=== PATIENT | female | born 2000 | race Caucasian/White ===

== ENCOUNTER → 2019-07-31 17:29 | Outpatient (BNVA) | payer MEDICAID, SELFPAY | PROVIDERS: Family Provider Pediatrics Adolescent Medicine; Visit Provider Nurse Practitioner Family | DX: N39.0 Urinary tract infection, site not specified (principal) | CPT/HCPCS: 81003; 81025; 87086; 87491; 87591; 87661 ==

== ENCOUNTER 2020-07-11 09:49 | Outpatient (CLI) | payer MEDICAID, SELFPAY ==
--- NOTE | 2020-07-11 09:59 | FL_ITS ---
WS: [id number] UPPER GI TECHNICAL: Double contrast upper GI FLUOROSCOPY TIME: 4.2 minutes CLINICAL INFORMATION: DIFFICULTY SWALLOWING, FIBROMYALGIA COMPARISON: None. FINDINGS: Swallowing: Normal. Esophagus: Moderate esophageal dysmotility with delayed emptying. Prominent reflux into the mid and u pper esophagus in the upright and supine imaging no significant hiatal hernia. Gastroesophageal reflux: Present Stomach: Diffuse thickening of the gastric rugae consistent with gastritis. Duodenum: Normal. Other findings: None. OK/OK upper GI series [id number] IMPRESSION: 1. Moderate esophageal dysmotility with delayed emptying. Prominent reflux int o the mid and upper esophagus on the upright and supine imaging. 2. Diffuse thickening of the gastric rugae likely due to gastritis. 3. Normal duodenal bulb. 4. No significant hiatal hernia.
== END 2020-07-11 09:50 | disposition home or self-care (01) ==
LOC: RADWPI 09:54
PROVIDERS: PCP Nurse Practitioner Family; Visit Provider Nurse Practitioner Family
DX: M79.7 Fibromyalgia (principal); R13.10 Dysphagia, unspecified
CPT/HCPCS: 74240

== ENCOUNTER 2020-07-17 07:22 | Emergency (ER) | payer MEDICAID, SELFPAY ==
[2020-07-17 07:29] VITALS: BP 109/78; PULSE 90; RESP 16; TEMP 36.7; O2SAT 99; BMI 21.2
--- NOTE | 2020-07-17 07:36 | W.ED.PREGNAN ---
HPI - General: Chief complaint: Vaginal Bleeding Stated complaint: , vaginal bleeding Time Seen by Provider: 07/17/20 07:29 History of Present Illness: HPI Narrative: 19 yo female complains of vaginal bleeding. Pt states she is (this being her first . Leading started on light yesterday and increased today. States it seems like normal cycle. She states her last menstrual period that was normal was June 25. This would put her at 3 weeks and 1 day. Patient states her positive test came after 3 home tests. She denies any cramping or abdominal pain no pelvic pain no dysuria urgency or frequency. MD Complaint: vaginal bleeding Onset (ago): hour(s) Pain Consistency: intermittent Severity: mild Date of Last Menstrual Period: 06/25/20 Number of Weeks : 3 weeks 1 day Associated symptoms: Deny abdominal pain, dyspareunia, dysuria, headache(s), malaise, nausea, rash, seizures, short of breath, syncope, vaginal bleeding, vaginal discharge, visual changes, vomiting or weakness Review of Systems Const: Denies: malaise ENMT: Denies: throat pain, ear or mastoid pain, nasal discharge or nasal congestion Card: Denies: syncope Resp: Denies: dyspnea, productive cough or non-productive cough GI: Denies: abdominal pain, nausea or vomiting : Denies: vaginal discharge or dyspareunia Skin/Breast: Denies: rash or pruritus Neuro: Denies: headache(s) [facility] ED PFSH: Social History (Updated 07/31/19 @ 17:29 by Jenny Mederos LPN) Smoking and tobacco status: current some day smoker Alcohol intake: current Female Reproductive History: Date of last menstrual period: 06/25/20 Physical Exam Const: COMMON NORMALS: no acute distress GENERAL APPEARANCE: cooperative and comfortable ORIENTATION/CONSCIOUSNESS: Yes awake, Yes oriented to person, Yes oriented to place and Yes oriented to time HENMT: COMMON NORMALS: normocephalic, atraumatic and hearing grossly normal bilaterally HEAD & SCALP: normocephalic and atraumatic Neck/C-Spine: COMMON NORMALS: no JVD Resp: COMMON NORMALS: normal respiratory effort, No retractions, No use of accessory muscles and clear to auscultation bilaterally AUSCULTATION: clear to auscultation bilaterally Cardio: COMMON NORMALS: no JVD, regular rate, regular rhythm and No murmurs present (Cardio) RATE: regular rate RHYTHM: regular rhythm GI: COMMON NORMALS: Soft to palpation and No hepatosplenomegaly present AUSCULTATION: Yes normoactive bowel sounds PALPATION: Yes Soft to palpation, No Tenderness to palpation present (GI), No Guarding due to palpation present (GI) and Yes No hepatosplenomegaly present : SPECULUM EXAM - VAGINA: No vaginal bleeding OB/EXTERNAL & SPECULUM: No vaginal bleeding Extremity: COMMON NORMALS: normal to inspection, capillary refill normal, no clubbing, cyanosis or edema, no calf tenderness and no pedal edema Neuro: SENSORIUM/ORIENTATION: Yes oriented to person, Yes oriented to place and Yes oriented to time Skin: COMMON NORMALS: no rashes or lesions noted GENERAL SKIN EXAM: no rashes or lesions noted Procedures Perimortem Number of Weeks : 3 weeks 1 day Course Vital Signs: Vital signs: Vital Signs Temperature 98.1 F 07/17/20 07:29 Pulse Rate 87 07/17/20 09:34 Respiratory Rate 16 07/17/20 07:29 Blood Pressure 121/84 07/17/20 09:34 Pulse Oximetry 100 07/17/20 09:34 MDM - OB/Uterine Contractions MDM Narrative: Medical decision making narrative: Ultrasound confirms intrauterine at approximately 7 weeks. No evidence of active bleeding no evidence of subchorionic hemorrhage although somewhat limited due to bowel gas. Patient declined transvaginal ultrasound. We will go ahead and discharge her home started on vitamins follow-up with her OB she is tends to establish with Dr. Glass return if has problems Lab Data: Labs: Lab Results 07/17/20 07/17/20 07/17/20 Range/Units 07:54 07:54 07:54 WBC 5.6 (4.5-13.0) 10^3/ uL RBC 5.24 (4.1-5.3) 10^6/u L Hgb 15.0 (11.5-15.3) g/dL Hct 44.1 (37.0-47.0) % MCV 84.2 (81-99) fL MCH 28.6 (28.0-34.0) pg MCHC 34.0 (30.0-36.0) g/dL RDW 11.7 L (12.1-15.1) % Plt Count 174 (130-400) 10^3/c mm MPV 11.3 H (7.4-10.4) fL Neut % (Auto) 61.4 % Lymph % (Auto) 25.4 % [place]le[place] % (Auto) 10.1 % Eos % (Auto) 2.2 % Baso % (Auto) 0.5 % Neut # (Auto) 3.42 (1.8-8.0) 10^3/u L Lymph # (Auto) 1.4 L (1.5-6.5) 10^3/u L [place] # (Auto) 0.6 (0.2-0.9) 10^3/u L Eos # (Auto) 0.1 (0.0-0.8) 10^3/u L Baso # (Auto) 0.0 (0.0-0.1) 10^3/u L Nucleated RBC % (a uto) 0 % Nucleated RBCs # 0.0 /100WBC Sodium 135 L (136-145) mmol/L Potassium 4.1 (3.5-5.1) mmol/L Chloride 102 (98-107) mmol/L Carbon Dioxide 25 (22-29) mmol/L Anion Gap 12.1 (5-19) BUN 8 (6-20) mg/dL Creatinine 0.6 (0.5-0.9) mg/dL GFR Calculation 127.5 (90-130) mL/min Glucose 89 (65-115) mg/dL Calculated Osmolal ity 278 L (285-295) mOsm/k g Calcium 9.2 (8.5-10.5) mg/dL Total Bilirubin 0.6 (0.15-1.2) mg/dL AST 9 (0-32) U/L ALT 8 (0-33) U/L Alkaline Phosphata se 70 (35-105) IU/L Total Protein 6.9 (6.6-8.7) g/dL Albumin 4.3 (3.5-5.2) g/dL Globulin 2.6 (1.3-4.6) g/dL Ser , [place] [address]33.00 mIU/mL Urine Color (Yellow) Urine Appearance (CLEAR) Urine pH (5-7) Ur Specific Gravit y (1.005-1.030) Urine Protein (Negative) Urine Glucose (UA) (Normal) Urine Ketones (Negative) Urine Blood (Negative) Urine Nitrate (Negative) Urine Bilirubin (Negative) Urine Urobilinogen (Negative) mg/dL Ur Leukocyte Maira ase (Negative) Urine RBC (0-2) /hpf Urine WBC (0-5) /hpf Ur Squamous Epith Cells (0-5) /hpf Amorphous Sediment Urine Bacteria (NONE) /hpf Urine Mucus /hpf Rho(D) Type Positive 07/17/20 Range/Units 07:58 WBC (4.5-13.0) 10^3/ uL RBC (4.1-5.3) 10^6/u L Hgb (11.5-15.3) g/dL Hct (37.0-47.0) % MCV (81-99) fL MCH (28.0-34.0) pg MCHC (30.0-36.0) g/dL RDW (12.1-15.1) % Plt Count (130-400) 10^3/c mm MPV (7.4-10.4) fL Neut % (Auto) % Lymph % (Auto) % [place] % (Auto) % Eos % (Auto) % Baso % (Auto) % Neut # (Auto) (1.8-8.0) 10^3/u L Lymph # (Auto) (1.5-6.5) 10^3/u L [place] # (Auto) (0.2-0.9) 10^3/u L Eos # (Auto) (0.0-0.8) 10^3/u L Baso # (Auto) (0.0-0.1) 10^3/u L Nucleated RBC % (a uto) % Nucleated RBCs # /100WBC Sodium (136-145) mmol/L Potassium (3.5-5.1) mmol/L Chloride (98-107) mmol/L Carbon Dioxide (22-29) mmol/L Anion Gap (5-19) BUN (6-20) mg/dL Creatinine (0.5-0.9) mg/dL GFR Calculation (90-130) mL/min Glucose (65-115) mg/dL Calculated Osmolal ity (285-295) mOsm/k g Calcium (8.5-10.5) mg/dL Total Bilirubin (0.15-1.2) mg/dL AST (0-32) U/L ALT (0-33) U/L Alkaline Phosphata se (35-105) IU/L Total Protein (6.6-8.7) g/dL Albumin (3.5-5.2) g/dL Globulin (1.3-4.6) g/dL Ser , Eileen i-Qnt mIU/mL Urine Color Yellow (Yellow) Urine Appearance Sl hazy (CLEAR) Urine pH 5 (5-7) Ur Specific Gravit y 1.025 (1.005-1.030) Urine Protein Neg (Negative) Urine Glucose (UA) Norm (Normal) Urine Ketones 1+ H (Negative) Urine Blood 3+ H (Negative) Urine Nitrate Negative (Negative) Urine Bilirubin 1+ H (Negative) Urine Urobilinogen 1 H (Negative) mg/dL Ur Leukocyte Maira ase Negative (Negative) Urine RBC 25-40 H (0-2) /hpf Urine WBC None (0-5) /hpf Ur Squamous Epith Cells 5-10 H (0-5) /hpf Amorphous Sediment Not Reportable Urine Bacteria 1+ H (NONE) /hpf Urine Mucus 1+ /hpf Rho(D) Type Discharge Plan Discharge Patient Disposition: Home Clinical Impression: First trimester bleeding Condition: Stable Prescriptions: New Vitamin 27 mg iron- 800 mcg tablet 1 tab PO DAILY Qty: 90 RF: 0 Discharge Orders: Discharge ED (Routine); Ordered 07/17/20 Ordered By: Derrick Henriquez Referrals: Analia Stark FNP [Primary Care Provider] - Discharge Diet: Usual diet Discharge Activity: Increase activity as tolerated Coding Level of Care Code ED General Ledger Accountant for Chg Fwd Exam Comprehensive
[2020-07-17 08:03] LABS: Basophils % 0.5 %; Eosinophils # 0.1 10^3/uL (0.0-0.8); Eosinophils % 2.2 %; Hematocrit 44.1 % (37.0-47.0); Lymphocytes # 1.4 10^3/uL (1.5-6.5); Lymphocytes % 25.4 %; Mean Corpuscular Hemoglobin 28.6 pg (28.0-34.0); Mean Corpuscular Volume 84.2 fL (81-99); Mean Platelet Volume 11.3 fL (7.4-10.4); Monocytes # 0.6 10^3/uL (0.2-0.9); Monocytes % 10.1 %; Neutrophils # 3.42 10^3/uL (1.8-8.0); Neutrophils % 61.4 %; Nucleated Red Blood Cells % 0 %; Platelet Count 174 10^3/cmm (130-400); Red Blood Count 5.24 10^6/uL (4.1-5.3); Red Cell Distribution Width 11.7 % (12.1-15.1); White Blood Count 5.6 10^3/uL (4.5-13.0)
[2020-07-17 08:37] LABS: Specific Gravity, Urine 1.025 (1.005-1.030); Urine Appearance SL Hazy (CLEAR); Urine Color Yellow (Yellow); pH Urine 5 (5-7)
[2020-07-17 08:38] LABS: Alanine Aminotransferase 8 U/L (0-33); Albumin Level 4.3 g/dL (3.5-5.2); Alkaline Phosphatase 70 IU/L (35-105); Anion Gap 12.1 (5-19); Aspartate Amino Transferase 9 U/L (0-32); Blood Urea Nitrogen 8 mg/dL (6-20); Calcium 9.2 mg/dL (8.5-10.5); Carbon Dioxide 25 mmol/L (22-29); Chloride 102 mmol/L (98-107); Creatinine Clr Calc Pharmacy 150.5001; Globulin 2.6 g/dL (1.3-4.6); Glomerular Filtration Rate 127.5 mL/min (90-130); Glucose 89 mg/dL (65-115); Osmolality Calculated 278 mOsm/kg (285-295); Potassium 4.1 mmol/L (3.5-5.1); Sodium 135 mmol/L (136-145); Total Bilirubin 0.6 mg/dL (0.15-1.2); Total Protein 6.9 g/dL (6.6-8.7)
[2020-07-17 08:38] LABS: Add Urine Culture? Yes; Add Urine Microscopic? YES; Bacteria Urine 1+ /hpf; Bilirubin Urine 1+ (Negative); Blood Urine 3+ (Negative); Glucose Urine UA Norm (Normal); Ketones Urine 1+ (Negative); Leukocyte Esterase Urine Negative (Negative); Mucus Urine 1+ /hpf; Nitrate Urine Negative (Negative); Protein Urine Neg (Negative); RBC Urine 25-40 /hpf (0-2); Urobilinogen Urine 1 mg/dL (Negative)
--- NOTE | 2020-07-17 09:14 | US_ITS ---
WS: [id number] ULTRASOUND EARLY TECHNIQUE: Transabdominal sonography of the pelvis was performed. CLINICAL INFORMATION: confirm intruterine preg LMP: 06/25/2020 Beta hCG: Unknown. COMPARISON: None. FINDINGS: Technically difficult examination due to bowel gas. UTERUS AND GESTATIONAL SAC Intrauterine gestations: Cervix measures 3.1 cm Estimated gestational age: 6w2d Yolk sac: 0.2 cm. [place] rump length (CRL): 0.5 cm. heart motion: 118 BPM. Subchorionic hemorrhage: None. OVARIES Right ovary: Normal. Left ovary: Difficult to visualize FREE FLUID None. US/US OB limited [id number] IMPRESSION: Technically difficult examination due to bowel gas. 1. Single live intrauterine . 2. Estimated gestational age; 6w2d. Estimated delivery March 10, 2021 3. Normal right ovary. 4. Left ovary not visualized. 5. No free fluid in the cul-de-sac.
[2020-07-17 09:34] VITALS: BP 121/84; PULSE 87; O2SAT 100
--- NOTE | 2020-07-17 09:37 | PC.NURSE ---
portable ultrasound at bedside
[2020-07-17 11:00] VITALS: BP 116/69; PULSE 80; O2SAT 100
== END 2020-07-17 11:09 | disposition home or self-care (01) ==
PROVIDERS: Emergency Provider Family Medicine; PCP Nurse Practitioner Family
DX: O20.9 Hemorrhage in early pregnancy, unspecified (principal); F17.200 Nicotine dependence, unspecified, uncomplicated
CPT/HCPCS: 12345; 36415; 76815; 80053; 81001; 84702; 85025; 87086; 99281; 99283

== ENCOUNTER 2020-10-24 14:45 | Outpatient (CLI) | payer MEDICAID, SELFPAY ==
--- NOTE | 2020-10-24 14:48 | US_ITS ---
WS: [id number] ULTRASOUND OB COMPLETE TECHNIQUE: Complete ultrasound. CLINICAL INFORMATION: SUPERVISION NORMAL COMPARISON: July 17, 2020 FINDINGS: Cervix measures 3.1 cm Single interuterine gestation is identified with cephalic presentation. Placenta is anterior. Placenta grade 0. Normal amniotic fluid volume. cardiac activity: 141 BPM. AGA: 21w0d MAYRA by ultrasound: 03/06/2021 Estimated weight: 361 g. BDP: 4.8 cm = 20w4d HC: 18.2 cm = 20w4d AC: 13.9 cm = 19w2d FEMUR LENGTH: 3.8 cm = 22w0d Anatomic survey: Anatomic survey is normal. Normal stomach. Kidneys and bladder are normal. Normal 3 vessel cord. Norm al 3 vessel cord insertion. Normal 4 chamber heart. Normal spine. Intracranial contents are normal. N ormal posterior fossa and cisterna magna. US/US OB >= 14 weeks fetus [id number] IMPRESSION: 1. Single intrauterine with visualized cardiac activity. AGA 21w0d w ith MAYRA 03/06/2021. 2. Placenta is anterior. No evidence of abruption or previa. 3. anatomic survey is normal. 4. Normal amniotic fluid volume.
== END 2020-10-24 14:46 | disposition home or self-care (01) ==
LOC: RAD 14:46
PROVIDERS: PCP Family Medicine; Visit Provider Family Medicine
DX: Z34.00 Encounter for supervision of normal first pregnancy, unspecified trimester (principal)
CPT/HCPCS: 76805

== ENCOUNTER 2020-11-29 15:10 | Outpatient (CLI) | payer MEDICAID, SELFPAY ==
[2020-11-29 15:10] VITALS: BMI 23.8
[2020-11-29 15:31] VITALS: BP 124/69; PULSE 89; TEMP 36.6
[2020-11-29 15:39] VITALS: RESP 17
[2020-11-29 16:05] VITALS: RESP 17
== END 2020-11-29 16:05 | disposition home or self-care (01) ==
LOC: OPOB 15:21 → OBGYN 15:24
PROVIDERS: PCP Family Medicine; Visit Provider Family Medicine
DX: O46.90 Antepartum hemorrhage, unspecified, unspecified trimester (principal); Z3A.00 Weeks of gestation of pregnancy not specified
CPT/HCPCS: 99211

== ENCOUNTER 2021-02-02 10:05 | Outpatient (CLI) | payer MEDICAID, SELFPAY ==
[2021-02-02 10:39] VITALS: BP 143/81; PULSE 101; TEMP 36.3
[2021-02-02 10:46] VITALS: BMI 43.2
[2021-02-02 10:55] VITALS: BP 140/69; PULSE 85
[2021-02-02 11:20] VITALS: BP 140/69; PULSE 85; RESP 15; TEMP 36.6
== END 2021-02-02 11:22 | disposition home or self-care (01) ==
LOC: OPOB 10:12 → OBGYN 10:13
PROVIDERS: PCP Family Medicine; Visit Provider Family Medicine
DX: O26.899 Other specified pregnancy related conditions, unspecified trimester (principal); Z3A.00 Weeks of gestation of pregnancy not specified; N89.8 Other specified noninflammatory disorders of vagina
CPT/HCPCS: 59025; 83986; 99211

== ENCOUNTER 2021-02-13 13:00 | Outpatient (CLI) | payer MEDICAID, SELFPAY ==
[2021-02-13 13:15] VITALS: BMI 28.8
[2021-02-13 13:18] VITALS: BP 118/72; PULSE 102
[2021-02-13 13:32] VITALS: BP 103/62; PULSE 101
[2021-02-13 13:47] VITALS: BP 108/64; PULSE 96
[2021-02-13 14:19] VITALS: BP 108/64; PULSE 96; RESP 18; TEMP 36.9
== END 2021-02-13 13:55 | disposition home or self-care (01) ==
LOC: OPOB 13:09 → OBGYN 13:10
PROVIDERS: PCP Family Medicine; Visit Provider Family Medicine
DX: O16.9 Unspecified maternal hypertension, unspecified trimester (principal); Z3A.00 Weeks of gestation of pregnancy not specified
CPT/HCPCS: 59025; 99211

== ENCOUNTER 2021-02-19 11:18 | Outpatient (CLI) | payer MEDICAID, SELFPAY ==
[2021-02-19 11:18] VITALS: BMI 29.4
[2021-02-19 11:52] VITALS: BP 109/76; PULSE 90
[2021-02-19 12:13] VITALS: TEMP 36.9
[2021-02-19 12:32] VITALS: BP 109/76; PULSE 90; RESP 16; TEMP 36.9
[2021-02-19 13:02] LABS: Actim Prom Negative
== END 2021-02-19 13:24 | disposition home or self-care (01) ==
LOC: OPOB 11:27 → OBGYN 13:15
PROVIDERS: PCP Family Medicine; Visit Provider Family Medicine
DX: O26.899 Other specified pregnancy related conditions, unspecified trimester (principal); Z3A.00 Weeks of gestation of pregnancy not specified; N89.8 Other specified noninflammatory disorders of vagina
CPT/HCPCS: 59025; 84112; 99211

== ENCOUNTER 2021-02-22 01:07 | Outpatient (CLI) | payer MEDICAID, SELFPAY ==
[2021-02-22 01:17] VITALS: BMI 29.4
[2021-02-22 01:18] VITALS: BP 119/79; PULSE 94
[2021-02-22 01:51] VITALS: BP 117/70; PULSE 87
[2021-02-22 02:00] VITALS: BP 117/70; PULSE 87; RESP 16
== END 2021-02-22 02:02 | disposition home or self-care (01) ==
LOC: OPOB 01:14 → OBGYN 01:28
PROVIDERS: PCP Family Medicine; Visit Provider Family Medicine
DX: O26.899 Other specified pregnancy related conditions, unspecified trimester (principal); Z3A.00 Weeks of gestation of pregnancy not specified; M54.5 Low back pain; R10.2 Pelvic and perineal pain
CPT/HCPCS: 59025; 83986; 99211

== ENCOUNTER 2021-02-22 14:50 | Outpatient (CLI) | payer MEDICAID, SELFPAY ==
[2021-02-22] VITALS (8 sets, daily range): BP systolic 119–129; BP diastolic 74–81; PULSE 85–98; RESP 16; TEMP 36; O2SAT 99; BMI 29.9
[2021-02-22 17:16] LABS: Total Volume, Urine 2200 mL; Urine Total Protein 5.6 mg/24HR (0-150); Urine Total Protein 24 Hour 123.2 mg/dL (0-150)
== END 2021-02-22 16:03 | disposition home or self-care (01) ==
LOC: OPOB 14:52 → OBGYN 14:53
PROVIDERS: PCP Family Medicine; Visit Provider Family Medicine
DX: O26.899 Other specified pregnancy related conditions, unspecified trimester (principal); Z3A.00 Weeks of gestation of pregnancy not specified; R60.9 Edema, unspecified
CPT/HCPCS: 59025; 84156; 99211

== ENCOUNTER 2021-02-25 13:20 | Outpatient (CLI) | payer MEDICAID, SELFPAY ==
[2021-02-25 13:44] VITALS: BP 134/82; PULSE 90; RESP 16
[2021-02-25 13:45] VITALS: BMI 29.9
[2021-02-25 13:59] VITALS: BP 123/71; PULSE 91
[2021-02-25 14:37] LABS: Nitrazine Paper, PH Negative
== END 2021-02-25 14:10 | disposition home or self-care (01) ==
LOC: OPOB 13:26 → OBGYN 13:28
PROVIDERS: PCP Family Medicine; Visit Provider Family Medicine
DX: O26.899 Other specified pregnancy related conditions, unspecified trimester (principal); Z3A.00 Weeks of gestation of pregnancy not specified; N89.8 Other specified noninflammatory disorders of vagina
CPT/HCPCS: 59025; 83986; 99211

== ENCOUNTER 2021-02-26 14:00 | Inpatient (IN) | payer MEDICAID, SELFPAY ==
[2021-02-26] VITALS (46 sets, daily range): BP systolic 120–189; BP diastolic 58–112; PULSE 77–134; RESP 17–18; TEMP 35.6–36.5; O2SAT 91–100; BMI 29.9
[2021-02-26 13:30] LABS: Nitrazine Paper, PH Inconclusive
[2021-02-26 13:51] LABS: Actim Prom Positive
--- NOTE | 2021-02-26 14:40 | PM.HP ---
Providers/Chief Complaint Primary Care Provider: Tommy Glass MD Chief Complaint: Contractions and Vaginal Discharge History of Present Illness Candi Gilliland is a 20 year old @ 38.2 weeks by 6 week US inconsistent with LMP. Preg c/b THC in 1st and 2nd TM, Vaping in early , SROM, asthma, 1st TM bleeding. The patient has been noticing increased leakage of fluid off and on over the last few days. She was seen in my office on 02/24/2021 and a spec exam was done. The vaginal vault was dry and nitrazine was negative at that time. She was evaluated yesterday in triage and nitrazine was negative again at that time. She noticed some gushes of fluid at approximately noon yesterday and intermittent leaking. She had further leaking this morning intermittently and nitrazine was indeterminant in OB and a actim prom was sent to him that was positive. For this reason the patient is being kept for spontaneous rupture membranes. The patient denies any fevers, cough, chest pain, shortness of breath, diarrhea, constipation, dysuria. She denies any headaches, seeing spots or nausea. She feels that there is an odor with the fluid. Medications/Allergies Home Medications Medication Instructions Recorded Confirmed Last Taken Type iron 325 mg PO BIDWM #60 tab 02/28/21 02/25/21 02/21/21 14:00 Rx multivit [id number] acid 1 cap PO DAILY #30 cap 02/28/21 Unknown Rx [-U] ibuprofen 800 mg PO TID #60 tab 03/01/21 Unknown Rx sennosides [senna] 8.6 mg PO BID PRN #30 tab 03/01/21 Unknown Rx Allergies Allergy/AdvReac Type Severity Reaction Status Date / Time egg Allergy ALGY-Swell Verified 02/22/21 01:20 Lip/Tongue/Throat peanut Allergy ALGY-Swell Verified 02/22/21 01:20 Lip/Tongue/Throat PFSH Acute PFSH: Social History Smoking and tobacco status: current some day smoker Alcohol intake: current Female Reproductive History: Date of last menstrual period: 06/25/20 : 1 Vitals/I&O/Wt Last Vital Signs Temp 96.1 F L 02/26/21 14:00 Pulse 78 02/26/21 14:30 BP 169/112 02/26/21 14:30 Weight last 48 hrs Weight 191 lb Physical Exam Narrative: EXAM NARRATIVE: General: Alert and oriented x3 Eyes: Pupils equal round and reactive to light and accommodation Mouth: Mucous membranes moist, pharynx non-erythematous Cardiac: Regular rate and rhythm without murmurs Lungs: Clear to auscultation bilaterally without wheezes, crackles or rhonchi Abdomen: Soft, non-tender, fundus consistent with gestational age Extremities: +1 pitting edema in the bilateral lower extremities Data : 02/27/21 12:20 A&P Additional A&P Information The patient will be admitted due to spontaneous rupture membranes. She has been having contractions intermittently at home and they are currently every 2 to 4 minutes. The patient has not very uncomfortable with them at this time. She would like to deliver all naturally. I did discuss the options of epidural with her. We will watch for any signs of complications related to possible prolonged rupture membranes as the timing of rupture is in question. Currently she is afebrile. heart tones are in the mid 150s with moderate variability and good accelerations. Category 1 tracing. Contractions every 2 to 4 minutes. We will have her rechecked 2 hours after her initial check and if no change is being made, we will add Pitocin to augment labor. The patient is GBS negative. The patient had THC in her urine in the first trimester. I believe that she has stopped smoking marijuana, and we will check a urine drug screen today to show this. All questions were answered. The patient is in agreement with the current plan of care. Attestations Medical Necessity Statement*: The patient will be here for greater than 2 midnights due to routine intrapartum and management of labor and delivery. Coding Level of Care Code Acute Front End Developer for Wicho Delgado
[2021-02-26 15:20] LABS: Basophils # 0.1 10^3/uL (0.0-0.1); Basophils % 0.5 %; Eosinophils # 0.3 10^3/uL (0.0-0.8); Eosinophils % 2.6 %; Hematocrit 43.6 % (37.0-47.0); Hemoglobin 13.3 g/dL (11.5-15.3); Lymphocytes # 1.6 10^3/uL (0.8-4.8); Lymphocytes % 14.2 %; Mean Corpuscular HGB Conc 30.5 g/dL (30.0-36.0); Mean Corpuscular Hemoglobin 28.5 pg (28.0-34.0); Mean Corpuscular Volume 93.4 fl (81-99); Mean Platelet Volume 11.1 fL (7.4-10.4); Monocytes % 9.4 %; Neutrophils # 7.89 10^3/uL (1.8-7.7); Neutrophils % 71.8 %; Nucleated Red Blood Cells % 0 %; Platelet Count 190 10^3/cmm (130-400); Red Blood Count 4.67 10^6/uL (4.1-5.3); Red Cell Distribution Width 13.2 % (12.1-15.1)
[2021-02-26] MEDS: oxytocin 30 UNIT/500 ML BAG IV (18:00)
[2021-02-26] MEDS: dextrose 5%-lactated ringers 1,000 ML 125 ML IV (18:00)
[2021-02-26] MEDS: lactated ringers 1,000 ML 999 ML IV (19:00)
[2021-02-26] MEDS: butorphanol 2 mg/mL SDV 1 mL 1 MG IVP (19:24)
[2021-02-26 19:57] LABS: Amphetamines Screen Urine Negative (Negative); Barbiturates Screen Urine Negative (Negative); Benzodiazepines Screen Urine Negative (Negative); Cocaine Screen Urine Negative (Negative); Opiate Screen Urine Negative (Negative); PCP Screen Urine Negative (Negative); THC Screen Urine Negative (Negative)
--- NOTE | 2021-02-26 20:18 | P.ANESASSM_ITS ---
Pre-Anesthetic Assessment Pre-Anesthetic Assessment: Height/Weight: Height 1.7 m Weight 86.636 kg Temp Pulse Resp BP Pulse Ox 97.7 F 94 17 140/65 91 02/26/21 18:06 02/26/21 20:13 02/26/21 18:00 02/26/21 20:12 02/26/21 20:13 Preop Diagnosis: labor pain Proposed Procedure: LEANN Was Beta Noah taken within 24 hours: N/A Was Clonidine taken within 24 hours: N/A Social: Social History: No tobacco Comment: Vap Exam: Pre-Anes Outpt Exam: alert, oriented x 3, clear to auscultation bilaterally and regular rate & rhythm Airway: Submandibular: WNL Cervical ROM: WNL MP: 2 Dentition: Full History/ROS: No significant history except as noted and No significant complaints Pulmonary: Pulmonary: Asthma CV/HEM: CV/HEM: None reported : : None reported Hepatic: Hepatic: None reported GI: GI: None reported Metabolic: Metabolic: None reported Musc/skel: Musc/skel: None reported Neuropsych: Neuropsych: None reported Anesthetic Plan: ASA status: 2 Anesthesia: Regional (specify below) Other: LEANN Risk of > 500 ml blood loss (7ml/kg in children): No Meds/Allergies Current Medications: Current Medications Generic Name Dose Route Start Last Admin Trade Name Freq PRN Reason Stop Dose Admin Butorphanol Tartra te 1 mg 02/26/21 14:03 02/26/21 19:24 Butorphanol 2 Mg /Ml Sdv 1 Ml IVP 1 mg Q2H PRN Administration SEVERE PAIN Dextrose/Lactated Ringer's 1,000 mls @ 125 m ls/hr 02/26/21 14:15 02/26/21 19:00 Dextrose 5%-Lact ated Ringers IV 0 mls/hr .Q8H VENKATESH Infusion Lactated Ringer's 1,000 mls @ 999 m ls/hr 02/26/21 17:39 02/26/21 19:00 Lactated Ringers IV 999 mls/hr .Q1H1M PRN Administration See label comment s Oxytocin 30 unit in 500 ml s @ 1 mls/hr 02/26/21 17:45 02/26/21 19:00 Pitocin IV 9 milliunit/min .Q24H VENKATESH 9 mls/hr Titration Protocol 1 MILLIUNIT/MIN PFSH Anesthesia PFSH: Social History (Updated 07/31/19 @ 17:29 by Jenny Mederos LPN) Smoking and tobacco status: current some day smoker Alcohol intake: current Female Reproductive History: Date of last menstrual period: 06/25/20 : 1 Data Anesthesia CBC & Chem 7: 02/26/21 14:45 Other Labs: Laboratory Results - last 48 hr 02/26/21 02/26/21 02/26/21 12:55 14:45 17:30 WBC 11.0 H RBC 4.67 Hgb 13.3 Hct 43.6 MCV 93.4 MCH 28.5 MCHC 30.5 RDW 13.2 Plt Count 190 MPV 11.1 H Neut % (Auto) 71.8 Lymph % (Auto) 14.2 [place] % (Auto) 9.4 Eos % (Auto) 2.6 Baso % (Auto) 0.5 Neut # (Auto) 7.89 H Lymph # (Auto) 1.6 [place] # (Auto) 1.0 H Eos # (Auto) 0.3 Baso # (Auto) 0.1 Nucleated RBC % (auto) 0 Nucleated RBCs # 0.0 Insulin-like GF I Positive Urine Opiates Screen Negative Ur Barbiturates Screen Negative Ur Phencyclidine Scrn Negative Ur Amphetamines Screen Negative U Benzodiazepines Scrn Negative Urine Cocaine Screen Negative U Marijuana (THC) Screen Negative Cardiac Studies: No Data to Display
--- NOTE | 2021-02-26 20:20 | ANES.PROC ---
Anesthesia Procedures Procedure/Date: 02/26/21 Epidural: Time Out Performed: Yes Consents Signed: Procedure Consent Consent: requested by attending/covering physician, from patient and patient agrees to proceed Lumbar Level: L3-L4 Epidural position: sitting Epidural procedure: sterile prep of area, 1% lidocaine to numb the area (2cc), 18 g needle, neg for paresthesia, test dose given, 1.5% xylocaine 1:200k epi (5cc), 0.2% Ropivacaine bolus ml (5cc and Fentanyl 100 mcg), placed PCEA, no systemic response, sterile dressing applied, L.U.D. no apparent complications and 0.2% Ropiavacaine @ mls/hr (13cc/hour)
--- NOTE | 2021-02-26 22:33 | P.PCNOB_ITS ---
Delivery Note: Date of delivery: February 26, 2021 Pre-delivery diagnoses: 1. Intrauterine at 38.2 weeks gestation 2. THC use in first and 2nd trimester 3. Nicotine use through vaping in 1st TM 4. Asthma 5. Spontaneous rupture membranes 6. Mild anemia Post-delivery diagnoses: 1. Intrauterine status post spontaneous vaginal at 38.2 weeks gestation 2. THC use in first trimester 3. Nicotine use through vaping in 1st TM 4. Asthma 5. Spontaneous rupture membranes 6. Mild anemia 7. Delivery of infant male weighing 7 pounds 15 ounces with Apgars of 8 and 8 Procedure: Spontaneous vaginal delivery Op report anesthesia: Epidural Delivering Physician: Tommy Glass MD Estimated blood loss (mL): 150 Findings: 1. With central umbilical cord insertion site 2. male weighing 7 pounds 15 ounces with Apgars of 8 and 8 needing respiratory support. Pre-Delivery Course: The patient had felt concerns for leakage of fluid off and on for a number of days. She had had multiple negative nitrazine and actim prom tests during that time. Her most recent had been negative on 02/25/2021. She felt another gush of fluid at approximately 10 AM on the morning of 02/26/2021. She presented a couple of hours later and continued to have many gushes of fluid. At that time the nitrazine was indeterminant, but the actim PROM was positive. For this reason she was admitted. Delivery: The patient was gm approximately every 2 to 4 minutes upon arrival and was 2 cm dilated. She was not making significant change after 2 hours, so was started on IV Pitocin for augmentation of labor. The patient then began to make regular change and received a laboring epidural. She was complete by 2054 on 02/26/2021. The patient began pushing at 2106. The patient pushed well and the delivered at 2132 on 02/26/2021. The infant was in the OA position. The left shoulder was the anterior shoulder and it delivered with ease. There was no nuchal cord. The rest of the delivered without complication. The infant's mouth and nose were bulb suctioned by myself. The infant took a cry initially after . The was placed on the mother's chest where the nurses were waiting to care for him. He had a couple of week cries during that time. The cord was clamped by myself and cut by the infant's father. The infant was breathing well but then started to have some grunting and became more dusky, so the infant was taken to the warmer for further evaluation. During this time the cord was drained of blood and traction was placed on umbilical cord. Uterine massage was done and the placenta delivered without complication at 2137. The placenta was noted to be intact. A central umbilical cord insertion site was noted. The cervix was inspected and no lacerations were noted. Vaginal wall was inspected and a second-degree perineal laceration was present. This was repaired using 3-0 Vicryl in a running fashion. The patient did not need extra anesthesia as her epidural gave adequate anesthesia. The rectum was inspected and no suture was noted. Currently the uterus is firm and midline and the patient has very little bleeding. Estimated blood loss is 150 mL. Currently the infant is needing respiratory support. A&P Assessment and plan (1) Spontaneous vaginal delivery: Status: Acute Coding Level of Care Code Acute Director Of Corporate Marketing for Kvng Danny Diagnoses Spontaneous vaginal delivery O80
[2021-02-27] VITALS (15 sets, daily range): BP systolic 100–145; BP diastolic 57–89; PULSE 88–114; RESP 15–17; TEMP 36.3–36.8; O2SAT 98
[2021-02-27] MEDS: HYDROcodone-acetaminophen 5-325 mg Tablet PO (02:00)
[2021-02-27] MEDS: ibuprofen 800 mg tablet PO ×2 (08:13→20:52)
--- NOTE | 2021-02-27 08:37 | P.PN_ITS ---
Subjective Subjective: Interval history: The patient is feeling well today. She is having some cramping and pain from her tear, otherwise is doing well. She is ambulating and tolerating food by mouth. She is able to void. Vitals/I&O/Wt Last Vital Signs Temp 97.7 F 02/26/21 18:06 Pulse 112 H 02/27/21 07:53 Resp 18 02/26/21 23:42 BP 118/61 02/27/21 07:53 Pulse Ox 100 02/26/21 20:42 02/26/21 02/27/21 02/27/21 22:59 06:59 14:59 Intake Total 1490.717 / 1490.717 674.150 / 2164.867 Output Total 200 / 200 900 / 1100 600 / 600 Balance 1290.717 / 1290.717 -225.850 / 1064.867 -600 / -600 Weight last 48 hrs Weight 191 lb Physical Exam Narrative: EXAM NARRATIVE: General: Alert and oriented x3 Cardiac: Regular rate and rhythm without murmurs Lungs: Clear to auscultation bilaterally without wheezes, crackles or rhonchi Abdomen: Soft, mild tenderness over the uterus, fundus is firm and 2 cm below the umbilicus Extremities: +1 pitting edema in the bilateral lower extremities Urinary Catheter Management^: [place]: Cath Placed During This Visit: yes, but has since been removed by the nurse Reason for Continuing Indwelling Catheter: Decision to DC Catheter Urinary Catheter Date of Insertion: 02/26/21 Urinary Catheter Time of Insertion: 20:35 Date Urinary Catheter Removed: 02/26/21 Time Urinary Catheter Discontinued: 21:06 Data : 02/26/21 14:45 A&P Additional A&P Information The patient is doing well today. She is ambulating, voiding, tolerating food by mouth. Her pain is well controlled. Her bleeding is decreasing well. Overall the patient is doing well. She is to start pumping to store back milk for her infant once he is able to feed. All questions were answered. The patient is in agreement with current plan of care. Attestations Medical Necessity Statement*: The patient will be here for greater than 2 midnights secondary to routine intrapartum and management of labor and delivery. Coding Level of Care Code Acute Solar Photovoltaic Electrician for Wicho Delgado
--- NOTE | 2021-02-27 10:13 | PC.NURSE ---
Patient came into nursery and complained of chest pain. This ad copy writer notified Mame SMALL, who is caring for the pt today. Mame brought a vitals machine into the nursery. this ad copy writer took pt's vital signs. Pt then stated that its actually not that bad now, it's probably heartburn. This ad copy writer asked pt if she would like ant medication for heartburn and she stated she does not want anything at this time. Pt is now rating chest pain at 1/10.
--- NOTE | 2021-02-27 12:23 | ANE.PACU2 ---
Inpatient post-anesthesia follow up: Airway intact: Yes Vital signs: Temperature 97.7 F Pulse Rate 102 Respiratory Rate 17 Blood Pressure 122/77 Pulse Oximetry 98 Oxygen Delivery Me thod Room Air Oxygen Flow Rate Fraction of Inspir ed Oxygen Hydration adequate: Yes Nausea and vomiting: No Pain level: 2 Mental status: Baseline
[2021-02-27 12:28] LABS: Hematocrit 32.5 % (37.0-47.0); Hemoglobin 10.4 g/dL (11.5-15.3); Mean Corpuscular Hemoglobin 28.2 pg (28.0-34.0); Mean Corpuscular Volume 88.1 fl (81-99); Mean Platelet Volume 10.8 fL (7.4-10.4); Platelet Count 205 10^3/cmm (130-400); Red Blood Count 3.69 10^6/uL (4.1-5.3); Red Cell Distribution Width 13.4 % (12.1-15.1); White Blood Count 13.6 10^3/uL (4.0-10.0)
[2021-02-27 14:48] LABS: Coronavirus Test Green County Not Detected
[2021-02-28 04:00] VITALS: BP 118/63; PULSE 82; RESP 15; TEMP 36.9; O2SAT 99
[2021-02-28] MEDS: acetaminophen 325 mg Tablet 650 MG PO (04:50)
[2021-02-28] MEDS: ibuprofen 800 mg tablet PO ×3 (09:58→20:22)
[2021-02-28] MEDS: prenatal vitamin Capsule 1 CAP PO (09:58)
--- NOTE | 2021-02-28 13:46 | PM.PN ---
Subjective Subjective: Interval history: The patient is doing well at this time. Her bleeding is decreasing well. Her pain is well-controlled. She is ambulating, voiding, passing gas and tolerating food by mouth. She has noted swelling in her legs. Vitals/I&O/Wt Last Vital Signs Temp 98.5 F 02/28/21 04:00 Pulse 82 02/28/21 04:00 Resp 15 02/28/21 04:00 BP 118/63 02/28/21 04:00 Pulse Ox 99 02/28/21 04:00 Physical Exam Narrative: EXAM NARRATIVE: General: Alert and oriented x3 Cardiac: Regular rate and rhythm without murmurs Lungs: Clear to auscultation bilaterally without wheezes, crackles or rhonchi Abdomen: Soft, mild tenderness over the uterus, fundus is firm and 2 cm below the umbilicus Extremities: +2 pitting edema in the bilateral lower extremities Urinary Catheter Management^: Linares: Cath Placed During This Visit: yes, but has since been removed by the nurse Reason for Continuing Indwelling Catheter: Decision to DC Catheter Urinary Catheter Date of Insertion: 02/26/21 Urinary Catheter Time of Insertion: 20:35 Date Urinary Catheter Removed: 02/26/21 Time Urinary Catheter Discontinued: 21:06 Data : 02/27/21 12:20 A&P Additional A&P Information The patient is improving well today. She has needed hydrocodone for pain control but otherwise has no concerns. We will continue to work with her for and follow. She is starting to hand express. She is doing well overall. Will plan on discharge tomorrow as long as she continues to do well. All questions were answered. Attestations Medical Necessity Statement*: The patient continues to need inpatient care as she recovers from vaginal delivery. Likely discharge tomorrow as long as she continues to do well. Coding Level of Care Code Acute [employer] for Wicho Delgado
--- NOTE | 2021-02-28 14:52 | PC.NURSE ---
Patient in nursery with baby. Kathy Adams RN assisting with application of breast pump.
[2021-02-28 15:32] VITALS: TEMP 36.2
[2021-02-28 15:33] VITALS: BP 132/79; PULSE 100
--- NOTE | 2021-02-28 15:34 | PC.RESP ---
SMOKING CESSATION INFORMATION SENT TO PATIENT.
[2021-02-28] MEDS: lanolin oint 7 gm 1 APPLIC TOPICAL (20:22)
[2021-02-28] MEDS: hyDROXYzine 25 mg Capsule 50 MG PO (21:57)
[2021-02-28] MEDS: benzocaine-menthol 78 gm Canister 1 SPRAY TOPICAL (21:57)
[2021-02-28 22:13] VITALS: BP 133/77; PULSE 91; RESP 15; TEMP 36.9; O2SAT 97
[2021-03-01 04:21] VITALS: BP 116/79; PULSE 84; RESP 17; TEMP 36.6; O2SAT 100
[2021-03-01] MEDS: HYDROcodone-acetaminophen 5-325 mg Tablet PO (04:46)
[2021-03-01] MEDS: ibuprofen 800 mg tablet PO ×2 (08:38→15:46)
[2021-03-01] MEDS: prenatal vitamin Capsule 1 CAP PO (08:39)
[2021-03-01 11:13] VITALS: BP 120/76; PULSE 91; RESP 16; TEMP 36.8; O2SAT 99
[2021-03-01 15:45] VITALS: BP 109/71; PULSE 100; RESP 17; O2SAT 99
--- NOTE | 2021-03-01 17:12 | PM.DCS ---
Discharge Providers Date of Admission: 02/26/21 14:00 Date of Discharge: March 01, 2021 Attending Provider at Admission: Tommy Glass MD Attending Provider at Discharge: Tommy Glass MD Primary Care Provider: Tommy Glass MD Diagnoses at Discharge Discharge Diagnosis (1) Intrauterine : Status: Acute (2) Spontaneous vaginal delivery: Status: Acute Other Information Additional DC diagnoses/information: 1. Intrauterine status post spontaneous vaginal at 38.2 weeks gestation 2. THC use in first trimester 3. Nicotine use through vaping in 1st TM 4. Asthma 5. Spontaneous rupture membranes 6. Mild anemia 7. Delivery of male weighing 7 pounds 15 ounces with Apgars of 8 and 8 Reason for Visit Reason for Visit: Contractions and Vaginal Discharge Hospital Course Hospital Course Pre-Delivery Course: The patient had felt concerns for leakage of fluid off and on for a number of days. She had had multiple negative nitrazine and actim prom tests during that time. Her most recent had been negative on 02/25/2021. She felt another gush of fluid at approximately 10 AM on the morning of 02/26/2021. She presented a couple of hours later and continued to have many gushes of fluid. At that time the nitrazine was indeterminant, but the actim PROM was positive. For this reason she was admitted. Delivery: The patient was gm approximately every 2 to 4 minutes upon arrival and was 2 cm dilated. She was not making significant change after 2 hours, so was started on IV Pitocin for augmentation of labor. The patient then began to make regular change and received a laboring epidural. She was complete by 2054 on 02/26/2021. The patient began pushing at 2106. The patient pushed well and the infant delivered at 2132 on 02/26/2021. The infant was in the OA position. The left shoulder was the anterior shoulder and it delivered with ease. There was no nuchal cord. The rest of the delivered without complication. The infant's mouth and nose were bulb suctioned by myself. The took a cry initially after . The infant was placed on the mother's chest where the nurses were waiting to care for him. He had a couple of week cries during that time. The cord was clamped by myself and cut by the 's father. The infant was breathing well but then started to have some grunting and became more dusky, so the was taken to the warmer for further evaluation. During this time the cord was drained of blood and traction was placed on umbilical cord. Uterine massage was done and the placenta delivered without complication at 2137. The placenta was noted to be intact. A central umbilical cord insertion site was noted. The cervix was inspected and no lacerations were noted. Vaginal wall was inspected and a second-degree perineal laceration was present. This was repaired using 3-0 Vicryl in a running fashion. The patient did not need extra anesthesia as her epidural gave adequate anesthesia. The rectum was inspected and no suture was noted. Currently the uterus is firm and midline and the patient has very little bleeding. Estimated blood loss is 150 mL. Post-delivery course: The patient has done well overall after delivery. Her bleeding is decreasing well. Her pain is well-controlled. She is ambulating, voiding, passing gas and tolerating food by mouth. Routine discharge instructions were discussed. All questions were answered. She will let me know if having any concerns. Will follow up at 6 weeks or sooner if needed. Physical Exam Narrative: EXAM NARRATIVE: General: Alert and oriented x3 Cardiac: Regular rate and rhythm without murmurs Lungs: Clear to auscultation bilaterally without wheezes, crackles or rhonchi Abdomen: Soft, mild tenderness over the uterus, fundus is firm and 3 cm below the umbilicus Extremities: +2 pitting edema in the bilateral lower extremities Urinary Catheter Management^: Linares: Cath Placed During This Visit: yes, but has since been removed by the nurse Reason for Continuing Indwelling Catheter: Decision to DC Catheter Urinary Catheter Date of Insertion: 02/26/21 Urinary Catheter Time of Insertion: 20:35 Date Urinary Catheter Removed: 02/26/21 Time Urinary Catheter Discontinued: 21:06 Discharge Data Vitals: Last Vital Signs Temp 98.2 F 03/01/21 11:13 Pulse 100 03/01/21 15:45 Resp 17 03/01/21 15:45 BP 109/71 03/01/21 15:45 Pulse Ox 99 03/01/21 15:45 Discharge Plan Discharge Patient Disposition: Home Condition: Good Prescriptions: New -U 106.5-1 mg Capsule 1 cap PO DAILY Qty: 30 RF: 0 ibuprofen 800 mg Tablet 800 mg PO TID Qty: 60 RF: 0 senna 8.6 mg tablet 8.6 mg PO BID PRN (Reason: constipation) Qty: 30 RF: 0 Changed iron 325 mg (65 mg iron) Tablet 325 mg PO BIDWM Qty: 60 RF: 0 Discharge Orders: Discharge Order (Routine); Ordered 03/01/21 Ordered By: Tommy Glass Referrals: Tommy Glass MD [Primary Care Provider] - 6 Weeks (Please call Dr. Glass's office Wednesday morning to schedule your appointment.) Discharge Diet: Usual diet Discharge Activity: Increase activity as tolerated Patient Instructions: Vitamins (By mouth), Depression (GEN), Pre-eclampsia and Eclampsia (DC), Bleeding (DC), OB Discharge Report, OB Food/Drug Interaction Guide, Opioid Safety, OB Home Care, OB Vaginal Deliveries Activity Restrictions/Additional Instructions: Nothing per vagina for 6 weeks. No swimming for 6 weeks. Discharge Attestations Time Spent in Discharge Care*: greater than 30 min Quality Metrics Clinical Quality Measures During this hospital stay, did patient experience: None Coding Level of Care Code Acute Chg FW DC note Diagnoses Intrauterine Z34.90 Spontaneous vaginal delivery O80
[2021-03-01 17:52] VITALS: BP 117/78; PULSE 102; RESP 16; TEMP 37.1; O2SAT 98
== END 2021-03-01 17:53 | disposition home or self-care (01) | DRG 806 ==
LOC: OPOB 21:53 → OBGYN 21:53
PROVIDERS: Admitting Provider Family Medicine; PCP Family Medicine; Visit Provider Family Medicine
DX: O42.92 Full-term premature rupture of membranes, unspecified as to length of time between rupture and onset of labor (principal); O99.322 Drug use complicating pregnancy, second trimester; Z37.0 Single live birth; F12.90 Cannabis use, unspecified, uncomplicated; O99.013 Anemia complicating pregnancy, third trimester; D64.9 Anemia, unspecified; Z3A.38 38 weeks gestation of pregnancy; Z91.018 Allergy to other foods; O70.1 Second degree perineal laceration during delivery; Z20.822 Contact with and (suspected) exposure to COVID-19
CPT/HCPCS: 36415; 51702; 59025; 59409; 80306; 83986; 84112; 85025; 85027; 87635; 96374; 98960; 99211; J0595; J2795; J3010

== ENCOUNTER → 2022-08-27 10:13 | Outpatient (BNVA) | payer SELFPAY | PROVIDERS: PCP Family Medicine; Visit Provider Family Medicine | DX: R30.0 Dysuria (principal) | CPT/HCPCS: 81000 ==

== ENCOUNTER → 2022-12-12 11:11 | Outpatient (BNVA) | payer SELFPAY | PROVIDERS: PCP Family Medicine; Visit Provider Nurse Practitioner Family | DX: J02.9 Acute pharyngitis, unspecified (principal); H66.91 Otitis media, unspecified, right ear | CPT/HCPCS: 87880 ==

== ENCOUNTER → 2022-12-18 12:25 | Outpatient (BNVA) | payer SELFPAY | PROVIDERS: PCP Family Medicine; Visit Provider Family Medicine | DX: R53.81 Other malaise (principal); R53.83 Other fatigue; Z51.81 Encounter for therapeutic drug level monitoring | CPT/HCPCS: 84443; 85025 ==

== ENCOUNTER → 2023-01-19 15:37 | Outpatient (BNVA) | payer SELFPAY | PROVIDERS: PCP Family Medicine; Visit Provider Family Medicine | DX: R30.0 Dysuria (principal) | CPT/HCPCS: 87086 ==

== ENCOUNTER → 2023-02-12 12:00 | Outpatient (BNVA) | payer SELFPAY | PROVIDERS: PCP Family Medicine; Visit Provider Family Medicine | DX: R30.0 Dysuria (principal); R31.9 Hematuria, unspecified | CPT/HCPCS: 81003 ==

== ENCOUNTER → 2023-03-16 16:55 | Outpatient (BNVA) | payer SELFPAY | PROVIDERS: PCP Family Medicine; Visit Provider Family Medicine | DX: R31.9 Hematuria, unspecified (principal); R30.0 Dysuria | CPT/HCPCS: 81000; 87086 ==

== ENCOUNTER → 2023-06-29 12:44 | Outpatient (BNVA) | payer SELFPAY | PROVIDERS: PCP Family Medicine; Visit Provider Family Medicine | DX: R30.0 Dysuria (principal); N39.0 Urinary tract infection, site not specified; R13.10 Dysphagia, unspecified | CPT/HCPCS: 81000; 87077; 87086; 87184 ==

== ENCOUNTER → 2023-10-24 10:37 | Outpatient (BNVA) | payer SELFPAY | PROVIDERS: PCP Family Medicine; Visit Provider Emergency Medicine | DX: R30.0 Dysuria (principal) | CPT/HCPCS: 81000 ==

== ENCOUNTER → 2024-01-18 15:11 | Outpatient (BNVA) | payer SELFPAY | PROVIDERS: PCP Family Medicine; Visit Provider Clinical Nurse Specialist Adult Health | DX: R30.0 Dysuria (principal) | CPT/HCPCS: 81000; 87086 ==

== ENCOUNTER → 2024-02-11 08:22 | Outpatient (BNVA) | payer OTHER, SELFPAY | PROVIDERS: PCP Family Medicine; Visit Provider Family Medicine | DX: Z00.00 Encounter for general adult medical examination without abnormal findings (principal) | CPT/HCPCS: 87491; 87591; 87624; 87661 ==

== ENCOUNTER → 2024-06-19 09:18 | Outpatient (BNVA) | payer OTHER, SELFPAY | PROVIDERS: PCP Family Medicine; Visit Provider Family Medicine | DX: E03.9 Hypothyroidism, unspecified (principal); R53.81 Other malaise; R53.83 Other fatigue; Z51.81 Encounter for therapeutic drug level monitoring; E53.8 Deficiency of other specified B group vitamins; Z13.220 Encounter for screening for lipoid disorders; E55.9 Vitamin D deficiency, unspecified | CPT/HCPCS: 80053; 80061; 82306; 82607; 83550; 84443; 85025 ==

== ENCOUNTER → 2024-06-20 08:33 | Outpatient (BNVA) | payer OTHER, SELFPAY | PROVIDERS: PCP Family Medicine; Visit Provider Family Medicine | DX: R30.0 Dysuria | CPT/HCPCS: 81000 ==

== ENCOUNTER → 2024-07-31 15:00 | Outpatient (BNVA) | payer OTHER, SELFPAY | PROVIDERS: PCP Family Medicine; Visit Provider Family Medicine | DX: B37.9 Candidiasis, unspecified (principal); R30.0 Dysuria | CPT/HCPCS: 81000 ==

== ENCOUNTER → 2024-08-31 12:23 | Outpatient (BNVA) | payer OTHER, SELFPAY | PROVIDERS: PCP Family Medicine; Visit Provider Registered Nurse Neonatal Intensive Care | DX: R39.9 Unspecified symptoms and signs involving the genitourinary system (principal) | CPT/HCPCS: 81000 ==

== ENCOUNTER → 2025-02-07 09:12 | Outpatient (BNVA) | payer OTHER, SELFPAY | PROVIDERS: PCP Family Medicine; Visit Provider Family Medicine | DX: R05.9 Cough, unspecified (principal) | CPT/HCPCS: 87426 ==

== ENCOUNTER → 2025-03-16 15:32 | Outpatient (BNVA) | payer OTHER, SELFPAY | PROVIDERS: PCP Family Medicine | DX: R30.0 Dysuria (principal) | CPT/HCPCS: 81000; 87086 ==

== ENCOUNTER 2025-05-01 17:53 | Emergency (ER) | payer OTHER, SELFPAY ==
--- OUTSIDE RECORDS SUMMARY | 2025-05-01 11:41 | XMS_ITS | Encounter Summary ---
Author Organization [facility] Address [address] [place] [address] Care Team Providers Care Loom Changeover Operator Name Role Phone Non-Staff, Physician Primary Care Provider Unava ilable Reason for Visit * Auth/Cert (Routine) Specialty Diagnoses / Procedures Referred By Contact Referred To Contact Gastroenterology Diagnoses Esophageal dysfunction Dysphagia, unspecified type Procedures EGD TN ESOPHAGOGASTRODUODENOSCOPY TRANSORAL DIAGNOSTIC TN EGD TRANSORAL BIOPSY SINGLE/MULTIPLE TN EGD BALLOON DILATION ESOPHAGUS <30 MM DIAM TN DILATION ESOPH UNGUIDED SOUND/BOUGIE 1/MULT PASS new request Tommy Glass MD [address] [place] [address] Phone: tel:[phone] fax:[phone] [facility] Gastroenterology - [place] [address] [place] [address] [address] [place] [address] Phone: tel:[phone] fax:[phone] Referral ID Status Reason Start Date Expiration Date Visits Requested Visits Authorized [id number] Performing Department to Schedule 03/07/2025 04/07/2026 1 1 Encounter Details Date Type Department Care Team (Late st Contact Info) Description 05/01/2025 11:41 AM [employer] SUPER[employer]OR - 05/01/2025 3:21 PM [employer] SUPERVISOR Hospital Encounter [facility] Endoscopy [place] [address] [place] [address] Denis Amos MD [address] [place] [id number] Discharge Disposition: Home or Self Care Social History Tobacco Use Types Packs/Day Years Used Date Smoking Tobacco: Never Smokeless Tobacco: Current Tobacco Cessation:Ready to Q uit: Not Asked; Counseling Given: Not Answered Feeling Safe Answer Date Recorded Are you in a relationship wi th someone who hurts you emotionally and/or physically? No 05/01/2025 Comments Unknown Sex and Gender Information Value Date Recorded Sex Assigned at Not on file Legal Sex Female 1:44 PM [employer] SUPER[employer]OR Gender Identity Not on file Sexual Orientation Not on file documented as of this encounter Last Filed Vital Signs Vital Sign Reading Time Taken Comments Blood Pressure 129/80 05/01/2025 3:05 PM [employer] Pulse 77 05/01/2025 3:05 PM [employer] SU[employer]OR Temperature - - Respiratory Rate 14 05/01/2025 3:05 PM [employer] SUPER[employer]OR Oxygen Saturation 100% 05/01/2025 3:05 PM [employer] SUPER[employer]OR Inhaled Oxygen Concentration - - Weight 54.4 kg (120 lb) 04/13/2025 3:45 PM [employer] SUPER[employer] Height 170.2 cm (5' 7 ) 04/13/2025 3:45 PM [employer] SUPERVISOR Body Mass Index 18.79 04/13/2025 3:45 PM [employer] SUPER[employer]OR documented in this encounter Discharge Instructions * Discharge Instructions* Christine Gonzales RN - 05/01/2025 1:14 PM [employer] SUPERVISOR Endoscopy Discharge Instructions Please read the instructions outlined below and refer to this sheet in the next few weeks. These discharge instructions provide you with general information on caring for yourself after you leave thespital. Your doctor may also give you specific instructions. While your treatment has been planned according to the most current medical practices available, unavoidable complications occasionally occur. If you have any problems or questions after discharge, please call your doctor. Your procedure today is: Gastroscopy with possible esophageal dilatation ACTIVITY You received sedation for your procedure today and we recommend the following: No driving or activity that requires concentration until the next day. Take frequent rest periods for the rest of the day today. Do not sign any important legal documents or operate any machinery until the next day. Due to the effects of sedation you will not have the same mental functionality as you normally do, therefore you should plan to rest at home today. It is recommended that you have a responsible adultstay with you the rest of the day today. NUTRITION Drink plenty of fluids. You may resume your normal diet. Begin with a light meal and progress to your normal diet. Avoid alcoholic beverages for 24 hours or as instructed by your caregiver. MEDICATIONS You should check with your physician before resuming any blood thinners or aspirin products. You may resume your normal medications unless your caregiver tells you otherwise WHAT YOU CAN EXPECT TODAY You may experience abdominal discomfort such as a feeling of fullness or ???gas?? pains. Walking will help expel (get rid of ) air and reduce the bloated feeling in your abdomen. FOLLOW UP Your doctor will notify you of your test results in the following ways: Your doctor may not call, but you will receive a letter in the mail with your results. Most results will post to your [employer] account. To sign up for [employer], go to [email or web address] Now CALL A PHYSICIAN IMMEDIATELY FOR ANY OF THE FOLLOWING: Severe pain or excessive vomiting Vomiting or passing of blood Temperature greater than 101 or shaking chills Redness, tenderness and swelling at site of IV that persists greater than 48 hours RESULTS If specimens (polyp, biopsy, etc.) were taken the results could take several days. If you do not receive results within 10 days please call our office. A full report will be sent to your referring physician. [facility] - Gastroenterology [address] [facility], [address] Wednesday- 8am-5pm & Fridays 8am-12pm please call: [phone] After hours voicemail: [phone] [facility] Endoscopy - Lower [facility] [address] [phone] [facility] Endoscopy - [place] [address] [address] [facility] Emergency Room [address] [facility] [phone] Gastroenterologists Arturo Guaman, MD Jameson Chance MD Chris Knudsen, MD Fabio Graham MD Gisela Ocasio Quinones, MD Marcelo Ingram MD I have received instructions from a nurse prior to my procedure and I understand the plan of care when I go home today. We appreciate your trust and greatly value your feedback. Our goal is to provide you with the highest level of care and service. You may be randomly selected to participate in a telephone survey about your visit. Your feedback about the positive experiences and opportunities for us to better serve you is important to us. Thank you for choosing [facility] Endoscopy. [employer] SUPERVISOR documented in this encounter Medications at Time of Discharge omeprazole (PriLOSEC) 40 mg Capsule, Delayed Release(E.C.) Take 1 Capsule (40 mg) by mouth 2 times daily before meals. 60 Capsule 2 05/01/2025 sucralfate (CARAFATE) 1 gram tablet Take 1 Tablet (1 Gram) by mouth 4 times daily before meals and at bedtime. Dissolve tablet in a tablespoon of water to create a slurry and then swallow. 30 Tablet 1 05/01/2025 citalopram (CeleXA) 10 mg tablet 03/07/2025 documented as of this encounter H&P Notes * Denis Amos MD - 05/01/2025 2:07 PM CST Candi Gilliland 2000 CSN:[id number] 05/01/2025 Referring physician: Non-Staff, Physician Endoscopy History and Physical This is a 24 y.o. female patient scheduled for EGD for the following indication: Dysphagia No past medical history on file. No past surgical history on file. Allergies Allergen Reactions Egg Anaphylaxis Peanut Anaphylaxis No current facility-administered medications on file prior to encounter. Current Outpatient Medications on File Prior to Encounter Medication Sig Dispense Refill citalopram (CeleXA) 10 mg tablet No family history on file. Social History Socioeconomic History Marital status: Single Spouse name: Not on file Number of children: Not on file Years of education: Not on file Highest education level: Not on file Occupational History Not on file Tobacco Use Smoking status: Never Smokeless tobacco: Current Vaping Use Vaping status: Every Day Substance and Sexual Activity Alcohol use: Not on file Drug use: Not on file Sexual activity: Not on file Other Topics Concern Not on file Social History Narrative Not on file Health-Related Social Needs Food Insecurity: Not on file Transportation Needs: Not on file Domestic Concerns: Not At Risk (05/01/2025) Feeling Safe Patient has indicated abuse: : No Housing Stability: Not on file Physical Exam: Airway Assessment Short/fat neck: No Short chin No Protruding upper teeth No Neck full ROM Yes Mouth opens>2 fingers Yes ASA Classification: ASA 2 - Patient with mild systemic disease with no functional limitations Lungs: clear to auscultation bilaterally, normal respiratory effort Heart: regular rate and rhythm, S1, S2 normal, no murmur, click, rub or gallop Abdomen: Soft, non-tender. Bowel sounds normal. No masses, no organomegaly. Neuro: Alert and Oriented Plan: Will proceed with the above mentioned procedure as scheduled. Informed consent was completed prior to the procedure. The procedure was discussed in detail with the patient. Specific risks were discussed including perforation, bleeding, infection, damage to internal organs, discomfort, and complications from sedation. The patient was given the opportunity to ask questions. Written consent was obtained. Denis Amos MD [employer] SUPERVISOR documented in this encounter Procedure Notes * Denis Amos MD - 05/01/2025 3:01 PM CSTAssociated Order(s): UPPER ENDOSCOPY REPORT [facility] GI Patient Name: Candi Gilliland Procedure Date: 05/01/2025 Date of : 2000 Admit Type: Outpatient Age: 24 Attending MD: Denis Amos MD, Procedure: Upper GI endoscopy Indications: Dysphagia Providers: Denis Amos MD Referring MD: Tommy Glass MD Medicines: Fentanyl 150 micrograms IV, Midazolam 7 mg IV, Diphenhydramine 50 mg IV Complications: No immediate complications. Procedure: Pre-Anesthesia Assessment: - Prior to the procedure, a History and Physical was performed, and patient medications and allergies were reviewed. The patient's tolerance of previous anesthesia was also reviewed. The risks and benefits of the procedure and the sedation options and risks were discussed with the patient. All questions were answered, and informed consent was obtained. Prior Anticoagulants: The patient has taken no anticoagulant or antiplatelet agents. ASA Grade Assessment: II - A patient with mild systemic disease. After reviewing the risks and benefits, the patient was deemed in satisfactory condition to undergo the procedure. After obtaining informed consent, the endoscope was passed under direct vision. Throughout the procedure, the patient's blood pressure, pulse, and oxygen saturations were monitored continuously. The Endoscope was introduced through the mouth, and advanced to the second part of duodenum. The upper GI endoscopy was accomplished without difficulty. The patient tolerated the procedure well. Estimated Blood Loss: Estimated blood loss was minimal. Findings: Mucosal changes including longitudinal furrows and stenosis were found in the entire esophagus. Stenosis was severe starting at 25 cm and continuing through to the GE junction at 40 cm. Gastroscope initially unable to traverse. Esophageal findings were graded using the Eosinophilic Esophagitis Endoscopic Reference Score (EoE-EREFS) as: Rings Grade 0 None (no ridges or rings seen), Exudates Grade 1 Mild (scattered white lesions involving less than 10 percent of the esophageal surface area), Furrows Grade 1 Mild (vertical lines without visible depth) and Stricture present (10 mm luminal diameter). Biopsies were obtained from the proximal and distal esophagus with cold forceps for histology of suspected eosinophilic esophagitis. A TTS dilator was passed through the scope. Dilation with a 10-11-12 mm x 5.5 cm CRE balloon (to a maximum balloon size of 12 mm) dilator was performed. The dilation site was examined and showed moderate mucosal disruption. The entire examined stomach was normal. The examined duodenum was normal. Moderate Sedation: Moderate (conscious) sedation was administered by the nurse and supervised by the endoscopist. The patient's oxygen saturation, heart rate, blood pressure and response to care were monitored. Total physician intraservice time was 24 minutes. Impression: - Esophageal mucosal changes suggestive of eosinophilic esophagitis including linear furrows and a long 15 cm stricture from the mid to distal esophagus. Dilated with a 10-11-12 mm x 5.5 cm CRE balloon (to a maximum balloon size of 12 mm). - Normal stomach. - Normal examined duodenum. - Biopsies were taken with a cold forceps for evaluation of eosinophilic esophagitis. Recommendation: - Patient has a contact number available for emergencies. The signs and symptoms of potential delayed complications were discussed with the patient. Return to normal activities tomorrow. Written discharge instructions were provided to the patient. - Liquid diet today and tomorrow. Then slowly advance as tolerated. - Omeprazole 40 mg twice daily. - Continue present medications. - Repeat EGD in 8 weeks. Will need MAC sedation. Denis Amos MD 05/01/2025 2:34:13 PM Number of Addenda: 0 Note Initiated On: 05/01/2025 2:04 PM Scope Withdrawal Time Scope In: Scope Out: [address] [place], [place] [employer] GIN YARD SUPERVISOR [employer]ARD SUPERVISOR [employer] SUPERVISOR documented in this encounter OR Notes * Alem-OP - Abi Hurst RN - 05/01/2025 3:27 PM CST Pt did start to complain of chest discomfort/sore throat. Dr. Amos notified and did come to bedside twice for reevaluation. Pt. Was instructed about pain getting worse and not improving to be evaluated in the emergency room. Vital signs were stable during entire phase II time. [employer]ARD SUPERVISOR * Alem-OP - Leanne Soto RN - 04/13/2025 3:49 PM CST EGD Your procedure date is 05/01/[address] Amos at [facility] [address] [address] You have an arrival time of 12:20 PM. You must bring a responsible adult ambulette driver who is here the entire time you are here. We also ask that you have an adult who can stay with you the rest of the day because of the sedation. Nothing to eat or drink after midnight except a small sip of water with morning meds the nurse specified you could have. If your appt is in the afternoon you may have 2 cups clear liquid before 10:15 AM. May take heart, blood pressure or seizure meds with sip of water only. Nothing by mouth (including clear liquids) for 2 hours prior to procedure arrival time. No diabetic meds the morning of the procedure. Do not bring any jewelry or valuables to your appointment. No driving a vehicle or operating heavy machinery and/or making important decisions for 24 hours after your procedure. Denies recent or pending surgery. If you wear oxygen and have a portable tank, please bring it with you the day of your procedure. Bring only your ambulette driver the day of your procedure. Appointment time and location verified. In preparation for your colonoscopy, it is essential that you follow a clear liquid diet as instructed by the preadmission testing nurse. The following are acceptable clear liquids when prepping for a colonoscopy: Clear Liquid Approved Items NO RED ITEMS OR MILK PRODUCTS -Chicken and beef broth -Apple Juice, White Grape Juice -Lemonade without pulp -Raji-aid -Sodas -Jello -Water, coffee and tea (no milk or cream) -Popsicles -Salt & Sugar -Sports drinks (Gatorade, Powerade, etc.) -Electrolyte packets (to add to water) [employer] SUPERVISOR documented in this encounter Plan of Treatment Scheduled Orders Name Type Priority Associated Diagnoses Orde r Schedule PATHOLOGY Pathology Pathology Release Upon O rdering for 1 Occurrences starting 05/01/2025 Scheduled Procedures Name Priority Associated Diagnoses Date/Ti me ESOPHAGOGASTRODUODENOSCOPY Esophageal dysfunction Dysphagia, unspecified type 05/01/2025 1:20 PM [employer] SUPER[employer]OR documented as of this encounter Procedures Procedure Name Priority Date/Time Associated Diagnosis Comments UPPER ENDOSCOPY REPORT 05/01/2025 3:01 PM [employer] SUPERVISOR POC , URINE Routine 05/01/2025 12:02 PM [employer] SUPER[employer]OR documented in this encounter Results * UPPER ENDOSCOPY REPORT (05/01/2025 3:01 PM C[employer] SUPERVISOR) Narrative Procedure Note Denis Amos MD - 05/01/2025 3:01 PM CST [facility] GI Patient Name: Candi Gilliland Procedure Date: 05/01/2025 Date of : 2000 Admit Type: Outpatient Age: 24 Attending MD: Denis Amos MD, Procedure: Upper GI endoscopy Indications: Dysphagia Providers: Denis Amos MD Referring MD: Tommy Glass MD Medicines: Fentanyl 150 micrograms IV, Midazolam 7 mg IV, Diphenhydramine 50 mg IV Complications: No immediate complications. Procedure: Pre-Anesthesia Assessment: - Prior to the procedure, a History and Physical was performed, and patient medications and allergies were reviewed. The patient's tolerance of previous anesthesia was also reviewed. The risks and benefits of the procedure and the sedation options and risks were discussed with the patient. All questions were answered, and informed consent was obtained. Prior Anticoagulants: The patient has taken no anticoagulant or antiplatelet agents. ASA Grade Assessment: II - A patient with mild systemic disease. After reviewing the risks and benefits, the patient was deemed in satisfactory condition to undergo the procedure. After obtaining informed consent, the endoscope was passed under direct vision. Throughout the procedure, the patient's blood pressure, pulse, and oxygen saturations were monitored continuously. The Endoscope was introduced through the mouth, and advanced to the second part of duodenum. The upper GI endoscopy was accomplished without difficulty. The patient tolerated the procedure well. Estimated Blood Loss: Estimated blood loss was minimal. Findings: Mucosal changes including longitudinal furrows and stenosis were found in the entire esophagus. Stenosis was severe starting at 25 cm and continuing through to the GE junction at 40 cm. Gastroscope initially unable to traverse. Esophageal findings were graded using the Eosinophilic Esophagitis Endoscopic Reference Score (EoE-EREFS) as: Rings Grade 0 None (no ridges or rings seen), Exudates Grade 1 Mild (scattered white lesions involving less than 10 percent of the esophageal surface area), Furrows Grade 1 Mild (vertical lines without visible depth) and Stricture present (10 mm luminal diameter). Biopsies were obtained from the proximal and distal esophagus with cold forceps for histology of suspected eosinophilic esophagitis. A TTS dilator was passed through the scope. Dilation with a 10-11-12 mm x 5.5 cm CRE balloon (to a maximum balloon size of 12 mm) dilator was performed. The dilation site was examined and showed moderate mucosal disruption. The entire examined stomach was normal. The examined duodenum was normal. Moderate Sedation: Moderate (conscious) sedation was administered by the nurse and supervised by the endoscopist. The patient's oxygen saturation, heart rate, blood pressure and response to care were monitored. Total physician intraservice time was 24 minutes. Impression: - Esophageal mucosal changes suggestive of eosinophilic esophagitis including linear furrows and a long 15 cm stricture from the mid to distal esophagus. Dilated with a 10-11-12 mm x 5.5 cm CRE balloon (to a maximum balloon size of 12 mm). - Normal stomach. - Normal examined duodenum. - Biopsies were taken with a cold forceps for evaluation of eosinophilic esophagitis. Recommendation: - Patient has a contact number available for emergencies. The signs and symptoms of potential delayed complications were discussed with the patient. Return to normal activities tomorrow. Written discharge instructions were provided to the patient. - Liquid diet today and tomorrow. Then slowly advance as tolerated. - Omeprazole 40 mg twice daily. - Continue present medications. - Repeat EGD in 8 weeks. Will need MAC sedation. Denis Amos MD 05/01/2025 2:34:13 PM Number of Addenda: 0 Note Initiated On: 05/01/2025 2:04 PM Scope Withdrawal Time Scope In: Scope Out: [address] [place], [place] Denis Amos MD GI PROCEDURE ORDERA BLES Edited Result - Final * POC , URINE (05/01/2025 12:02 PM [employer] SUPERVISOR) HCG QUAL URINE Negative Negative 05/01/2025 12:02 PM [employer] SUPERVISOR [facility] Urine 05/01/2025 12:0 2 PM [employer] SUPERVISOR 05/01/2025 12:07 PM [employer] SUPERVISOR Narrative [facility] - 05/01/2025 12:02 PM [employer] SUPERVISOR Positive : Result is greater than or equal to 25 mIU/mL Negative: Result is less than 25 mIU/mL Invalid: Result is borderline or indeterminate,send to lab for serum test methodology. Denis Amos MD POINT OF CARE TESTI NG Final Result [facility] CLIA # [id number] [address] [address] documented in this encounter Visit Diagnoses Not on filedocumented in this encounter Administered Medications Inactive Administered Medications - up to 3 most recent administrations Medication Order MAR Action Action Date Dose Rate Site sodium chloride 0.9 % infusion IV, at 125 mL/hr, PRE-PROCEDURE CONTINUOUS, Starting on Wed05/01/25 at 1315, Until Wed05/01/25 at 1732, Routine, Pre-Procedure New Bag 05/01/2025 1:24 PM [employer] SUPERVISOR 125 mL/hr documented in this encounter Active and Recently Administered Medications Times are shown in [employer] SUPERVISOR. Continuous Medication Order 04/29/2025 04/30/2025 05/01/2025 sodium chloride 0.9 % infusion IV, at 125 mL/hr, PRE-PROCEDURE CONTINUOUS, Starting on Wed05/01/25 at 1315, Until Wed05/01/25 at 1732, Routine, Pre-Procedure 1324 (New Bag - Prov ider: NIKHIL Ambrosio)1441 (Stopped - Provider: Abi Hurst RN) PRN Medication Order 04/29/2025 04/30/2025 05/01/2025 diphenhydrAMINE (BENADRYL) injection (CANCELED) INTRA-PROCEDURE PRN, Starting on Wed05/01/25 at 1412, Until Wed05/01/25 at 1437, Routine, Intra-op 1412 (Given - Provid er: Esperanza Perrin RN)1413 (Given - Provider: Esperanza Perrin RN) fentaNYL (PF) (SUBLIMAZE) 50 mcg/mL injection (CANCELED) INTRA-PROCEDURE PRN, Starting on Wed05/01/25 at 1409, Until Wed05/01/25 at 1437, Routine, Intra-op 1409 (Given - Provid er: Esperanza Perrin RN)1413 (Given - Provider: Esperanza Perrin RN)1416 (Given - Provider: Esperanza Perrin RN) midazolam (VERSED) injection (CANCELED) INTRA-PROCEDURE PRN, Starting on Wed05/01/25 at 1409, Until Wed05/01/25 at 1437, Routine, Intra-op 1409 (Given - Provid er: Esperanza Perrin RN)1413 (Given - Provider: Esperanza Perrin RN)1416 (Given - Provider: Esperanza Perrin RN) documented in this encounter Care Teams Loom Changeover Operator Relationship Specialty Start Date End Date Non-Staff, Physician NO ADDRESS ON FILE PCP - General 07/05/07 documented as of this encounter
--- OUTSIDE RECORDS SUMMARY | 2025-05-01 13:20 | XMS_ITS | Encounter Summary ---
Author Organization [facility] Address [address] [place] [address] Care Team Providers Care Facialist Name Role Phone Non-Staff, Physician Primary Care Provider Unava ilable Reason for Visit * Auth/Cert (Routine) Specialty Diagnoses / Procedures Referred By Contact Referred To Contact Gastroenterology Diagnoses Esophageal dysfunction Dysphagia, unspecified type Procedures EGD WA ESOPHAGOGASTRODUODENOSCOPY TRANSORAL DIAGNOSTIC WA EGD TRANSORAL BIOPSY SINGLE/MULTIPLE WA EGD BALLOON DILATION ESOPHAGUS <30 MM DIAM WA DILATION ESOPH UNGUIDED SOUND/BOUGIE 1/MULT PASS new request Tommy Glass MD [address] [place] [address] Phone: tel:[phone] fax:[phone] [facility] Gastroenterology - [place] [address] [place] [address] [address] [place] [address] Phone: tel:[phone] fax:[phone] Referral ID Status Reason Start Date Expiration Date Visits Requested Visits Authorized [id number] Performing Department to Schedule 03/07/2025 04/07/2026 1 1 Encounter Details Date Type Department Care Team (Late st Contact Info) Description 05/01/2025 1:20 PM BOAT CARPENTER - 05/01/2025 1:40 PM BOAT CARPENTER Surgery [facility] Endoscopy [place] [address] [place] [address] Denis Amos MD [address] [place] [address] ESOPHAGOGASTRODUODENOSCOPY Social History Tobacco Use Types Packs/Day Years [...] on file Legal Sex Female 1:44 PM BOAT CARPENTER Gender Identity Not on file Sexual Orientation Not on file documented as of this encounter Last Filed Vital Signs Vital Sign Reading Time Taken Comments Blood Pressure 108/79 05/01/2025 1:18 PM BOAT CARPENTER Pulse 58 05/01/2025 1:18 PM BOAT CARPENTER Temperature - - Respiratory Rate 16 05/01/2025 1:18 PM BOAT CARPENTER Oxygen Saturation 100% 05/01/2025 1:18 PM BOAT CARPENTER Inhaled Oxygen Concentration - - Weight 54.4 kg (120 lb) 04/13/2025 3:45 PM BOAT CARPENTER Height 170.2 cm (5' 7 ) 04/13/2025 3:45 PM BOAT CARPENTER Body Mass Index 18.79 04/13/2025 3:45 PM BOAT CARPENTER documented in this encounter Discharge Instructions * Discharge Instructions* Christine Gonzales RN - 05/01/2025 1:14 PM BOAT CARPENTER Endoscopy Discharge Instructions Please read the instructions [...] results. Most results will post to your [employer] Not[employer] account. To sign up for [employer] Not[employer], go to [email or web address] [facility] [place] Now CALL A PHYSICIAN IMMEDIATELY FOR ANY [...] will be sent to your referring physician. [facility] - Gastroenterology [address], [address] Wednesday- 8am-5pm & Fridays 8am-12pm please call: [phone] After hours voicemail: [phone] [facility] Endoscopy - Lower [facility] [address] [facility] [address] [address] [phone] [facility] Endoscopy - [place] [address] [address] [facility] Emergency Room [address] [facility] [phone] Gastroenterologists Arturo Guaman MD Jameson Chance MD Chris Knudsen, MD Fabio Graham MD Gisela Ocasio Quinones, MD Marcelo nIgram MD I have received instructions from a [...] important to us. Thank you for choosing [facility] Endoscopy. CARPENTER documented in this encounter Medications at Time [...] 05/01/2025 2:07 PM CST Candi Gilliland 2000 CSN:[id number] 05/01/2025 Referring physician: Non-Staff, Physician Endoscopy History [...] Written consent was obtained. Denis Amos MD CARPENTER documented in this encounter Procedure Notes * Denis Amos MD - 05/01/2025 3:01 PM CSTAssociated Order(s): UPPER ENDOSCOPY REPORT [facility] GI Patient Name: Candi Gilliland Procedure Date: [...] Withdrawal Time Scope In: Scope Out: [address] [place], [place] CARPENTER CARPENTER CARPENTER documented in this encounter OR Notes * [facility]-OP - Abi Hurst RN - 05/01/2025 3:27 PM CST Pt did start to complain of chest discomfort/sore throat. Dr. Amos notified and did come to bedside twice for reevaluation. Pt. Was instructed about pain getting worse and not improving to be evaluated in the emergency room. Vital signs were stable during entire phase II time. CARPENTER * Alem-OP - Leanne Soto RN - 04/13/2025 3:49 PM CST EGD Your procedure date is 05/01/[address] Amos at [facility] [address] [address] You have an arrival time of 12:20 PM. You must bring a responsible adult stud driver who is here the entire time [...] day of your procedure. Bring only your stud driver the day of your procedure. Appointment [...] etc.) -Electrolyte packets (to add to water) CARPENTER documented in this encounter Plan of Treatment Scheduled Orders Name Type Priority Associated Diagnoses Orde r Schedule PATHOLOGY Pathology Pathology Release Upon O rdering for 1 Occurrences starting 05/01/2025 Scheduled Procedures Name Priority Associated Diagnoses Date/Ti me ESOPHAGOGASTRODUODENOSCOPY Esophageal dysfunction Dysphagia, unspecified type 05/01/2025 1:20 PM BOAT CARPENTER documented as of this encounter Procedures Procedure Name Priority Date/Time Associated Diagnosis Comments UPPER ENDOSCOPY REPORT 05/01/2025 3:01 PM BOAT CARPENTER POC , URINE Routine 05/01/2025 12:02 PM BOAT CARPENTER documented in this encounter Results * UPPER ENDOSCOPY REPORT (05/01/2025 3:01 PM BOAT CARPENTER) Narrative Procedure Note Denis Amos MD - 05/01/2025 3:01 PM CST [facility] GI Patient Name: Candi Gilliland Procedure Date: [...] Time Scope In: Scope Out: [address] [place], [place] Denis Amos MD GI PROCEDURE ORDERA BLES Edited Result - Final * POC , URINE (05/01/2025 12:02 PM BOAT CARPENTER) HCG QUAL URINE Negative Negative 05/01/2025 12:02 PM BOAT CARPENTER [facility] Urine 05/01/2025 12:0 2 PM BOAT CARPENTER 05/01/2025 12:07 PM BOAT CARPENTER Narrative [facility] - 05/01/2025 12:02 PM BOAT CARPENTER Positive : Result is greater than or equal to 25 mIU/mL Negative: Result is less than 25 mIU/mL Invalid: Result is borderline or indeterminate,send to lab for serum test methodology. us Denis Amos MD POINT OF CARE TESTI NG Final Result [facility] CLIA # [id number] [address] [address] [place] [address] documented in this encounter Visit Diagnoses Not on filedocumented in this encounter Administered Medications Inactive Administered Medications - up to 3 most recent administrations Medication Order MAR Action Action Date Dose Rate Site diphenhydrAMINE (BENADRYL) injection INTRA-PROCEDURE PRN, Starting on Wed05/01/25 at 1412, Until Wed05/01/25 at 1437, Routine, Intra-op Given 05/01/2025 2:13 PM BOAT CARPENTER 25 mg Given 05/01/2025 2:12 PM BOAT CARPENTER 25 mg fentaNYL (PF) (SUBLIMAZE) 50 mcg/mL injection INTRA-PROCEDURE PRN, Starting on Wed05/01/25 at 1409, Until Wed05/01/25 at 1437, Routine, Intra-op Given 05/01/2025 2:16 PM BOAT CARPENTER 50 mcg Given 05/01/2025 2:13 PM BOAT CARPENTER 50 mcg Given 05/01/2025 2:09 PM BOAT CARPENTER 50 mcg midazolam (VERSED) injection INTRA-PROCEDURE PRN, Starting on Wed05/01/25 at 1409, Until Wed05/01/25 at 1437, Routine, Intra-op Given 05/01/2025 2:16 PM BOAT CARPENTER 2 mg Given 05/01/2025 2:13 PM BOAT CARPENTER 2 mg Given 05/01/2025 2:09 PM BOAT CARPENTER 3 mg sodium chloride 0.9 % infusion IV, at 125 mL/hr, PRE-PROCEDURE CONTINUOUS, Starting on Wed05/01/25 at 1315, Until Wed05/01/25 at 1732, Routine, Pre-Procedure New Bag 05/01/2025 1:24 PM BOAT CARPENTER 125 mL/h r documented in this encounter Active and Recently Administered Medications Times are shown in BOAT CARPENTER. Continuous Medication Order 04/29/2025 04/30/2025 05/01/2025 sodium [...] er: Esperanza Perrin RN)1413 (Given - Provider: Espernaza Perrin RN)1416 (Given - Provider: Esperanza Perrin RN) midazolam (VERSED) injection (CANCELED) INTRA-PROCEDURE PRN, Starting on Wed05/01/25 at 1409, Until Wed05/01/25 at 1437, Routine, Intra-op 1409 (Given - Provid er: Esperanza Perrin RN)1413 (Given - Provider: Esperanza Perrin RN)1416 (Given - Provider: Esperanza Perrin RN) documented in this encounter Care Teams Facialist Relationship Specialty Start Date End Date Non-Staff, Physician NO ADDRESS ON FILE PCP - General 07/05/07 documented as of this encounter
[2025-05-01 17:57] VITALS: BP 106/69; PULSE 116; RESP 14; TEMP 37.4; O2SAT 99
--- OUTSIDE RECORDS SUMMARY | 2025-05-01 18:00 | XMS_ITS | Encounter Summary ---
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
--- OUTSIDE RECORDS SUMMARY | 2025-05-01 18:00 | XMS_ITS | Encounter Summary ---
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
--- OUTSIDE RECORDS SUMMARY | 2025-05-01 18:00 | XMS_ITS | Clinical Summary ---
Author Organization [facility] Address [address] [place] [address] Care Team Providers Care Tactical Air Defense Controller Name Role Phone Non-Staff, Physician Primary Care Provider Unava ilable Immunizations Immunization Administration Dates Next Due (M-M-R II/PRIORIX)(12 MO UP) MEASLES, MUMPS AND RUBELLA VIRUS VACCINE, 0.5 ML IM/SUBCUT 01/25/2004,01/24/2001 (VARIVAX)(12 MOS UP)VARICELL A VIRUS VACCINE (PF) 0.5 ML, SUB CUT 03/22/2001 Dt Dtp Dtap Vaccine 01/25/2004, 1,06/22/2000,1999,1999 HIB, Unspecified Formulation 01/24/2001, 06/22/2000,03/01/2000,1999 Hepatitis B Vaccine 06/22/2000,1999,1999 IPV/OPV 01/25/2004, 1,03/01/2000,1999 Social History Tobacco Use Types Packs/Day Years Used Date Smoking Tobacco: Never Assessed Comments Unknown Sex and Gender Information Value Date Recorded Sex Assigned at Not on file Legal Sex Female 6:53 AM SOFTWARE 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 Gender Identity Not on file Sexual Orientation Not on file Plan of Treatment Health Maintenance Due Date Last Done Comments DTAP/TDAP/TD VACCINES (6 - Tdap) 10/25/2010 01/25/2004, 01/24/2001, 06/22/2000, Additional history exists HPV VACCINES (1 - 3-dose series) 10/25/2014 CERVICAL CANCER SCREENING 10/25/2020 HPV/Cotest (21-29) 10/25/2020 PAP SMEAR 10/25/2020 INFLUENZA VACCINE (#1) 2025 HEPATITIS B VACCINES Completed 06/22/2000, 1999, 1999 Insurance [facility] Care Teams Tactical Air Defense Controller Relationship Specialty Start Date End Date Non-Staff, Physician NO ADDRESS ON FILE PCP - General 07/05/07
--- OUTSIDE RECORDS SUMMARY | 2025-05-01 18:00 | XMS_ITS | Encounter Summary ---
Author Organization [employer] Address [address] [place] [address] Care Team Providers Care Import Coordinator Name Role Phone Non-Staff, Physician Primary Care Provider Unava ilable Encounter Details Date Type Department Care Team (Late st Contact Info) Description 03/28/2008 Outpatient Historical [facility] DEFAULT DEPARTMENT Social History Tobacco Use Types Packs/Day Years Used Date Smoking Tobacco: Never Assessed Comments Unknown Sex and Gender Information Value Date Recorded Sex Assigned at Not on file Legal Sex Female 6:53 AM DIRECTOR OF SERVICES Gender Identity Not on file Sexual Orientation Not on file documented as of this encounter Plan of Treatment Not on file documented as of this encounter Visit Diagnoses Not on filedocumented in this encounter Care Teams Import Coordinator Relationship Specialty Start Date End Date Non-Staff, Physician NO ADDRESS ON FILE PCP - General 07/05/07 documented as of this encounter
--- OUTSIDE RECORDS SUMMARY | 2025-05-01 18:00 | XMS_ITS | Clinical Summary ---
Author Organization [facility] Address [address] 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 60 Capsule 2 5 Active sucralfate (CARAFATE) 1 gram tablet Take 1 Tablet (1 Gram) by mouth 4 times daily before meals and at bedtime. Dissolve tablet in a tablespoon of water to create a slurry and then swallow. 30 Tablet 1 5 Active Encounters Date Type Department Care Team Description 5 1:20 PM DIPPER OPERATOR - 5 1:40 PM DIPPER OPERATOR Surgery [facility] Endoscopy [place] [address] [place] [place] [address] Denis Amos MD ESOPHAGOGASTRODUODENOSCOPY 5 11:41 AM DIPPER OPERATOR - 5 3:21 PM DIPPER OPERATOR Hospital Encounter [facility] Endoscopy [place] [address] [place] [place] [phone] Denis Amos MD Discharge Disposition: Home or Self Care 5 External Device Data STL ABSTRACTION Provider, Abstract 5 Orders Only [facility] Gastroenterology - [place] [address] [place] [phone] Tommy Glass MD Esophageal dysfunction (Primary Dx); Dysphagia, unspecified type 5 External Device Data STL ABSTRACTION Provider, Abstract from Last 3 Months Immunizations Immunization Administration Dates Next Due (M-M-R [...] on file Legal Sex Female 1:44 PM DIPPER OPERATOR Gender Identity Not on file Sexual Orientation Not on file Last Filed Vital Signs Vital Sign Reading Time Taken Comments Blood Pressure 129/80 05/01/2025 3:05 PM DIPPER OPERATOR Pulse 77 05/01/2025 3:05 PM DIPPER OPERATOR Temperature - - Respiratory Rate 14 05/01/2025 3:05 PM DIPPER OPERATOR Oxygen Saturation 100% 05/01/2025 3:05 PM DIPPER OPERATOR Inhaled Oxygen Concentration - - Weight 54.4 kg (120 lb) 04/13/2025 3:45 PM DIPPER OPERATOR Height 170.2 cm (5' 7 ) 04/13/2025 3:45 PM DIPPER OPERATOR Body Mass Index 18.79 04/13/2025 3:45 PM DIPPER OPERATOR Plan of Treatment Scheduled Procedures Name Priority Associated Diagnoses Date/Ti me ESOPHAGOGASTRODUODENOSCOPY Esophageal dysfunction Dysphagia, unspecified type 05/01/2025 1:20 PM DIPPER OPERATOR Health Maintenance Due Date Last Done Comments DTAP/TDAP/TD VACCINES (6 - Tdap) 10/25/2010 01/25/2004, 01/24/2001, 06/22/2000, Additional history exists HPV VACCINES (1 - 3-dose series) 10/25/2014 CERVICAL CANCER SCREENING 10/25/2020 HPV/Cotest (21-29) 10/25/2020 PAP SMEAR 10/25/2020 INFLUENZA VACCINE (#1) 2025 HEPATITIS B VACCINES Completed 06/22/2000, 1999, 1999 Procedures Procedure Name Priority Date/Time Associated Diagnosis Comments UPPER ENDOSCOPY REPORT 05/01/2025 3:01 PM DIPPER OPERATOR POC , URINE Routine 05/01/2025 12:02 PM DIPPER OPERATOR from Last 3 Months Results * UPPER ENDOSCOPY REPORT (05/01/2025 3:01 PM DIPPER OPERATOR) Narrative Procedure Note Denis Amos MD - 05/01/2025 3:01 PM CST [facility] GI Patient Name: Candi Gilliland Procedure [...] Time Scope In: Scope Out: [address] [place] Denis Amos MD GI PROCEDURE ORDERA BLES Edited Result - Final * POC , URINE (05/01/2025 12:02 PM DIPPER OPERATOR) HCG QUAL URINE Negative Negative 05/01/2025 12:02 PM DIPPER OPERATOR [facility] Urine 05/01/2025 12:0 2 PM DIPPER OPERATOR 05/01/2025 12:07 PM DIPPER OPERATOR Narrative [facility] - 05/01/2025 12:02 PM DIPPER OPERATOR Positive : Result is greater than or equal to 25 mIU/mL Negative: Result is less than 25 mIU/mL Invalid: Result is borderline or indeterminate,send to lab for serum test methodology. Denis Amos MD POINT OF CARE TESTI NG Final Result [facility] CLIA # [id number] [address] [place] [address] [place] [address] from Last 3 Months [facility] [place] Advance Directives For more information, please contact: [phone] * Full Code (Latest Code Status on File) Date Activated Date Inactivated Comments 05/01/2025 1:14 PM 05/01/2025 5:42 PM Care Teams Workers Compensation Consultant Relationship Specialty Start Date End Date Non-Staff, Physician NO ADDRESS ON FILE PCP - General 07/05/07
--- NOTE | 2025-05-01 18:06 | CTR_ITS ---
PROCEDURE INFORMATION: Exam: CT Chest With Contrast; Diagnostic Exam date and time: 05/01/2025 7:18 PM Age: 24 years old Clinical indication: Abdominal pain; Other: Epigastric pain; C/O difficulties swallowing. PT reports that she had a scope done today at [facility] today and concern for a perf. *pt states the scope done today was to attempt to find a reason for her difficulty swallowing. During scope, they found her esophogus was very constricted and attempted to stretch it. PT states severe belly pain since she woke up post scope. *; Additional info: Abd pain TECHNIQUE: Imaging protocol: Diagnostic computed tomography of the chest with contrast. Radiation optimization: All CT scans at this facility use at least one of these dose optimization techniques: automated exposure control; mA and/or kV adjustment per patient size (includes targeted exams where dose is matched to clinical indication); or iterative reconstruction. Contrast material: [id number]; Contrast volume: 100 ml; Contrast route: INTRAVENOUS (IV); Other contrast: Oral, [id number], approx 15mL; COMPARISON: No relevant prior studies available. RADIATION DOSE METRICS: Total DLP (mGy-cm): 517.38 FINDINGS: Trachea: Patent central airways. Lungs: Clear lungs. Pleural spaces: No pneumothorax or pleural effusion. Heart: Heart size is normal. No pericardial effusion. Esophagus: There is circumferential pneumatosis involving the length of the esophagus. There is surrounding small nonfocal pneumomediastinum and air tracking into the neck soft tissues. No contrast extravasation is visualized. No mediastinal collection. Lymph nodes: No supraclavicular, axillary, mediastinal, or hilar adenopathy. Vasculature: Unremarkable. No aortic aneurysm. Bones/joints: No acute fracture or dislocation. Soft tissues: Unremarkable. PROCEDURE INFORMATION: Exam: CT Abdomen And Pelvis With Contrast Exam date and time: 05/01/2025 7:18 PM Age: 24 years old Clinical indication: Abdominal pain; Other: Epigastric pain; C/O difficulties swallowing. PT reports that she had a scope done today at [facility] today and concern for a perf. *pt states the scope done today was to attempt to find a reason for her difficulty swallowing. During scope, they found her esophogus was very constricted and attempted to stretch it. PT states severe belly pain since she woke up post scope. *; Additional info: Abd pain TECHNIQUE: Imaging protocol: Computed tomography of the abdomen and pelvis with contrast. Radiation optimization: All CT scans at this facility use at least one of these dose optimization techniques: automated exposure control; mA and/or kV adjustment per patient size (includes targeted exams where dose is matched to clinical indication); or iterative reconstruction. Contrast material: [id number]; Contrast volume: 100 ml; Contrast route: INTRAVENOUS (IV); Other contrast: Oral, [id number], approx 15mL; COMPARISON: US OB >= 14 weeks fetus [id number] 10/24/2020 3:03 PM RADIATION DOSE METRICS: Total DLP (mGy-cm): 517.38 FINDINGS: Mediastinal space: Small air is seen around the gastroesophageal junction, likely an extension from mediastinal air. Liver: Unremarkable. No abnormally enhancing liver lesions. Gallbladder and biliary ducts: Unremarkable. No radiopaque cholelithiasis. No biliary ductal dilatation. Pancreas: Unremarkable. No pancreatic ductal dilatation. Spleen: Unremarkable. Adrenal glands: The adrenal glands are unremarkable. Kidneys and ureters: Symmetric bilateral renal enhancement. No hydronephrosis. No radiopaque renal or urinary tract stones. 0.9 cm right renal cyst. Stomach and bowel: Enteric contrast is seen in the stomach. No contrast extravasation. The stomach is unremarkable. No bowel obstruction. Appendix: No evidence of appendicitis. Intraperitoneal space: No ascites. Vasculature: Unremarkable. Lymph nodes: No abdominal or pelvic adenopathy. Urinary bladder: The urinary bladder is mildly distended. Reproductive: The uterus Bones/joints: No acute fracture or dislocation. Mild retrolisthesis L5 on S1. Soft tissues: Unremarkable. CT/CT chest abdpel w/*[id number] IMPRESSION: 1. Pneumatosis involving the length of the esophagus with surrounding pneumomediastinum. 2. No evidence for contrast extravasation or obvious mediastinal collection. Recommend barium esophagram to assess for possible esophageal perforation in the setting of recent procedure. Gas insufflation into the esophagus may also have this appearance. Correlate with procedural history. IMPRESSION: 1. Small air around the gastroesophageal junction, likely extension from pneumomediastinum. 2. No other acute intra-abdominal findings. COMMENTS: 1. THIS REPORT CONTAINS FINDINGS THAT MAY BE CRITICAL TO PATIENT CARE. The exam findings were verbally communicated by me to JOSE DE JESUS HAJI via telephone conference at 7:50 PM CASINO WORKER on 05/01/2025. The findings were acknowledged and understood. 2. Consistent with the [employer]'s Incidental Findings Committee white paper (J Am Lidya Radiol 2018): Any incidental renal lesion less than 1 cm or classified as too small to characterize, or any incidental cystic renal lesion characterized as simple-appearing, is likely benign. No follow-up imaging is recommended for these lesions per consensus recommendations based on imaging criteria.
--- NOTE | 2025-05-01 18:09 | W.ED.ABDPA2 ---
HPI - Abdominal Pain General: Chief Complaint: Airway/Esophagus Foreign Body Stated Complaint: unable to swallow Time Seen by Provider: 05/01/25 18:03 Source: patient Mode of arrival: ambulatory Limitations: no limitations History of Present Illness: 24-year-old female who has had a history of difficulty swallowing in the past. She had a EGD done at [facility] today and had esophageal dilatation states that since then she has been having upper abdominal pain states she has had a hard time swallowing as well. States pain sharp in nature rated a 7 out of 10. She denies any vomiting denies any fever Related Data Previous Rx's ?Medication ?Instructions ?Recorded omeprazole 40 mg capsule,delayed 40 mg PO DAILY #30 caps 02/16/25 release cefdinir 250 mg/5 mL oral 300 mg (6 mL) PO BID 5 days #60 mL 03/16/25 suspension buspirone 5 mg tablet 5 mg PO TID #90 tabs 03/27/25 citalopram 10 mg tablet 10 mg PO DAILY #30 tabs 03/27/25 ibuprofen 100 mg/5 mL oral 800 mg (40 mL) PO Q6H PRN headache 03/27/25 suspension #473 mL Allergies Allergy/AdvReac Type Severity Reaction Status Date / Time egg Allergy ALGY-Swell Verified 05/01/25 18:02 Lip/Tongue/Throat peanut Allergy ALGY-Swell Verified 05/01/25 18:02 Lip/Tongue/Throat Review of Systems GI: Reports: abdominal pain PFS ED PFSH: Medical History (Updated 05/01/25 @ 20:32 by Jose De Jesus Haji MD) Esophageal dysmotility Migraine, hemiplegic Asthma Fibromyalgia Generalized anxiety disorder Surgical History No history of previous surgery Family History Grandfather Cancer Paternal grandfather had colon and lung cancer Other Fibromyalgia Social History Smoking and tobacco/nicotine status: never used tobacco/nicotine Alcohol intake: current Alcohol intake frequency: holidays/special occasions only Substance/Drug Use: never 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 Physical Exam Const: COMMON NORMALS: no acute distress, patient oriented x3 and healthy appearing HENMT: COMMON NORMALS: normocephalic and atraumatic HEAD & SCALP: normocephalic and atraumatic Neck/C-Spine: COMMON NORMALS: full ROM and supple Chest: COMMONS NORMALS: normal inspection of the chest Resp: COMMON NORMALS: normal respiratory effort Cardio: COMMON NORMALS: regular rate, regular rhythm and No murmurs present (Cardio) RATE: regular rate RHYTHM: regular rhythm GI: COMMON NORMALS: Normal to inspection, nondistended, normoactive bowel sounds present, Soft to palpation, non-tender and no masses PALPATION: Yes Soft to palpation Extremity: COMMON NORMALS: normal to inspection and full ROM Neuro: COMMON NORMALS: patient oriented x3, moves all extremities and no focal motor deficits Psych: COMMON NORMALS: mental status grossly normal, Normal thought process present and cooperative THOUGHT PROCESS: Normal thought process present Skin: COMMON NORMALS: no rashes or lesions noted and no wounds GENERAL SKIN EXAM: no rashes or lesions noted Course Vital Signs: Vital signs: Vital Signs Temperature 99.3 F 05/01/25 17:57 Pulse Rate 76 05/01/25 20:11 Respiratory Rate 14 05/01/25 17:57 Blood Pressure 109/69 05/01/25 20:11 Pulse Oximetry 93 05/01/25 20:11 MDM - Abdominal Pain Medical Decision Making Patient presents here with severe chest and abdominal pain after EGD that was performed at [facility] today. Did perform a CT scan here that showed pneumomediastinum concerns of a possible esophageal perforation. I did call [facility] originally CT surgeon states that they are that they do not do esophageal purse. Did reach out to [facility] spoke to CT surgeon there Dr. ayala who recommended transfer for esophagram to rule out esophageal perforation. Not able to do esophagram here at night. Patient's pain has been under control here vitals have been normal did give her IV antibiotics will transfer to [facility] for higher level care for esophagram and CT surgery critical care time 40 minutes The high probability of a clinically significant, sudden or life threatening deterioration of the patient's gi system(s) required my full and direct attention, intervention and personal management. The critical care time is as shown. This time is in addition to time spent performing any reported procedures but includes the following: [x] Data and vital sign review and interpretation [x] Patient assessment, examination and intervention [x] Documentation [x] Medication orders and management Medical Records I reviewed the patient's medical records. Lab Data I reviewed the patient's lab results. 05/01/25 18:20 05/01/25 18:20 Labs/Radiology: Radiology Impressions Chest/Abdomen/Pelvis CT 05/01/25 18:06 IMPRESSION: 1. Pneumatosis involving the length of the esophagus with surrounding pneumomediastinum. 2. No evidence for contrast extravasation or obvious mediastinal collection. Recommend barium esophagram to assess for possible esophageal perforation in the setting of recent procedure. Gas insufflation into the esophagus may also have this appearance. Correlate with procedural history. IMPRESSION: 1. Small air around the gastroesophageal junction, likely extension from pneumomediastinum. 2. No other acute intra-abdominal findings. COMMENTS: 1. THIS REPORT CONTAINS FINDINGS THAT MAY BE CRITICAL TO PATIENT CARE. The exam findings were verbally communicated by me to JOSE DE JESUS HAJI via telephone conference at 7:50 PM RN DISEASE MANAGEMENT on 05/01/2025. The findings were acknowledged and understood. 2. Consistent with the [employer]'s Incidental Findings Committee white paper (J Am Lidya Radiol 2018): Any incidental renal lesion less than 1 cm or classified as too small to characterize, or any incidental cystic renal lesion characterized as simple-appearing, is likely benign. No follow-up imaging is recommended for these lesions per consensus recommendations based on imaging criteria. Laboratory Results WBC 10.38 10^3/uL (3.29-11.43) 05/01/25 18:20 RBC 5.52 10^6/uL (3.85-5.65) 05/01/25 18:20 Hgb 15.80 g/dL (11.27-16.99) 05/01/25 18:20 Hct 47.3 % (36-47) H 05/01/25 18:20 MCV 85.7 fl (85-98) 05/01/25 18:20 MCH 28.6 pg (27-33) 05/01/25 18:20 MCHC 33.4 g/dL (30-55) 05/01/25 18:20 RDW 12.3 % (12.1-15.1) 05/01/25 18:20 Plt Count 215 10^3/cmm (157-399) 05/01/25 18:20 MPV 11.3 fL (7.4-10.4) H 05/01/25 18:20 Neut % (Auto) 80.7 % 05/01/25 18:20 Lymph % (Auto) 11.7 % 05/01/25 18:20 [place] % (Auto) 6.1 % 05/01/25 18:20 Eos % (Auto) 1.1 % 05/01/25 18:20 Baso % (Auto) 0.2 % 05/01/25 18:20 Neut # (Auto) 8.39 10^3/uL (1.8-7.7) H 05/01/25 18:20 Lymph # (Auto) 1.2 10^3/uL (0.8-4.8) 05/01/25 18:20 [place] # (Auto) 0.6 10^3/uL (0.2-0.9) 05/01/25 18:20 Eos # (Auto) 0.1 10^3/uL (0.0-0.8) 05/01/25 18:20 Baso # (Auto) 0.0 10^3/uL (0.0-0.1) 05/01/25 18:20 Nucleated RBC % (auto) 0 % 05/01/25 18:20 Nucleated RBCs # 0.0 /100WBC 05/01/25 18:20 Sodium 142 mmol/L (136-145) 05/01/25 18:20 Potassium 4.0 mmol/L (3.5-5.1) 05/01/25 18:20 Chloride 107 mmol/L (98-107) 05/01/25 18:20 Carbon Dioxide 24 mmol/L (22-29) 05/01/25 18:20 Anion Gap 15.0 (5-19) 05/01/25 18:20 BUN 8 mg/dL (6-20) 05/01/25 18:20 Creatinine 0.8 mg/dL (0.5-0.9) 05/01/25 18:20 GFR Calculation 87.4 mL/min (90-130) L 05/01/25 18:20 Glucose 99 mg/dL (65-115) 05/01/25 18:20 Calculated Osmolality 292 mOsm/kg (285-295) 05/01/25 18:20 Calcium 9.3 mg/dL (8.5-10.5) 05/01/25 18:20 Total Bilirubin 0.7 mg/dL (0.15-1.2) 05/01/25 18:20 AST 16 U/L (0-32) 05/01/25 18:20 ALT 13 U/L (0-33) 05/01/25 18:20 Alkaline Phosphatase 55 U/L (35-105) 05/01/25 18:20 Total Protein 7.8 g/dL (6.6-8.7) 05/01/25 18:20 Albumin 4.6 g/dL (3.5-5.2) 05/01/25 18:20 Globulin 3.2 g/dL (1.3-4.6) 05/01/25 18:20 Lipase 130 U/L (13-60) H 05/01/25 18:20 HCG, Qual Negative (Negative) 05/01/25 18:20 All radiology interpretation(s) finalized by discharge Critical Care Time Critical Care Time: Critical Care Time: Yes Total Critical Care Time: 40 Attestation: The high probability of a clinically significant, sudden or life threatening deterioration of the patient's gi system(s) required my full and direct attention, intervention and personal management. The critical care time is as shown. This time is in addition to time spent performing any reported procedures but includes the following: [x] Data and vital sign review and interpretation [x] Patient assessment, examination and intervention [x] Documentation [x] Medication orders and management Discharge Plan Discharge Patient Disposition: Xfer Short-Term Hosp Clinical Impression: Esophageal perforation Condition: Stable Referrals: Tommy Glass MD [Primary Care Provider, [facility]] Print Language: Pakistani Coding Level of Care Code ED Optical Laboratory Manager for Wicho Delgado
[2025-05-01] MEDS: metoclopramide 5 mg/mL SDV 2 mL 10 MG IVP (18:19)
[2025-05-01] MEDS: diphenhydrAMINE 50 mg/mL SDV 1mL IVP (18:19)
[2025-05-01 18:22] VITALS: BP 120/71; PULSE 92; O2SAT 92
[2025-05-01 18:55] LABS: Hematocrit 47.3 % (36-47); Hemoglobin 15.80 g/dL (11.27-16.99); Mean Corpuscular HGB Conc 33.4 g/dL (30-55); Mean Corpuscular Hemoglobin 28.6 pg (27-33); Mean Corpuscular Volume 85.7 fl (85-98); Nucleated Red Blood Cells % 0 %; Platelet Count 215 10^3/cmm (157-399); Red Blood Count 5.52 10^6/uL (3.85-5.65); White Blood Count 10.38 10^3/uL (3.29-11.43)
[2025-05-01 19:01] LABS: Alanine Aminotransferase 13 U/L (0-33); Albumin Level 4.6 g/dL (3.5-5.2); Alkaline Phosphatase 55 U/L (35-105); Anion Gap 15.0 (5-19); Aspartate Amino Transferase 16 U/L (0-32); Blood Urea Nitrogen 8 mg/dL (6-20); Calcium 9.3 mg/dL (8.5-10.5); Carbon Dioxide 24 mmol/L (22-29); Chloride 107 mmol/L (98-107); Globulin 3.2 g/dL (1.3-4.6); Glucose 99 mg/dL (65-115); Lipase 130 U/L (13-60); Osmolality Calculated 292 mOsm/kg (285-295); Potassium 4.0 mmol/L (3.5-5.1); Sodium 142 mmol/L (136-145); Total Protein 7.8 g/dL (6.6-8.7)
[2025-05-01 19:05] LABS: HCG, Serum Qual Negative (Negative)
[2025-05-01] MEDS: iohexol 350 mg/mL 500 mL Btl (per mL) IV (19:32)
[2025-05-01] MEDS: iohexol 350 mg/mL 500 mL Btl (per mL) PO (19:32)
[2025-05-01] MEDS: piperacillin-tazobactam 3.375 GM in sodium chloride 0.9% (plus) 50 ML IV (20:09)
[2025-05-01 20:11] VITALS: BP 109/69; PULSE 76; O2SAT 93
[2025-05-01] MEDS: ondansetron 2 mg/ML SDV 2 mL 4 MG IVP (20:35)
[2025-05-01] MEDS: HYDROmorphone 0.5 MG/0.5 ML INJ 1 MG IVP (20:36)
[2025-05-01 21:45] VITALS: BP 113/76; PULSE 112; O2SAT 96
== END 2025-05-01 21:47 | disposition short-term general hospital (02) ==
PROVIDERS: Emergency Provider Emergency Medicine; PCP Family Medicine
DX: K22.3 Perforation of esophagus (principal)
CPT/HCPCS: 71260; 74177; 80053; 83690; 84703; 85025; 96365; 96375; 99285; J1171; J1200; J2405; J2543; J2765; J9999

== ENCOUNTER → 2025-05-07 16:23 | Outpatient (BNVA) | payer OTHER, SELFPAY | PROVIDERS: PCP Family Medicine; Visit Provider Family Medicine | DX: Z51.81 Encounter for therapeutic drug level monitoring (principal) | CPT/HCPCS: 85025 ==